=== PATIENT | male | born 1950 | race Caucasian/White ===

== ENCOUNTER 2022-09-16 01:18 | Observation (INO) | payer OTHER ==
[2022-09-16] MEDS ORDERED: LORAZEPAM 1 MG TABLET ONE (01:57)
[2022-09-16 02:02] LABS: Protime INR 0.99
[2022-09-16 02:04] LABS: Absolute Lymphocytes (CBC) 3.2 K/uL (0.7-4.9); Hematocrit 44.3 % (39.6-49.0); Lymphocytes % 32.9 % (15.3-44.8); MPV 8.6 fL (7.6-11.3); RBC Red Blood Cell Count 4.76 M/uL (4.33-5.43)
[2022-09-16 02:17] LABS: Bilirubin Direct 0.2 mg/dL (0-0.2); Bilirubin Indirect, Calculated 0.5 mg/dL (0.2-0.8); Bilirubin Total 0.7 mg/dL (0.2-1.0); Potassium 3.3 mEq/L (3.5-5.1); Protein, Total 7.6 g/dL (6.4-8.2); Troponin High Sensitivity 7.9 pg/mL (<58.9)
--- NOTE | 2022-09-16 04:54 | EKG ---
Test Date: 2022-09-16 Test Time: 01:22:01 Production Material Coordinator: ROMA MEASUREMENT RESULTS: Intervals: Rate: 117 ME: 164 QRSD: 82 QT: 312 QTc: 435 [place]: P: 71 ME: 164 QRS: 79 T: 54 INTERPRETIVE STATEMENTS: Sinus tachycardia Otherwise normal ECG No previous ECG available for comparison Electronically Signed On 09-16-22 04:53:30 CDT by Yonatan Park
[2022-09-16] MEDS ORDERED: ALBUTEROL 2.5 MG/3 ML NEB SOL NEB PRN ×2 (05:50→14:00)
[2022-09-16] MEDS ORDERED: ACETAMINOPHEN 500 MG TAB PO PRN (05:50)
[2022-09-16] MEDS ORDERED: ALPRAZOLAM 0.5 MG TABLET PO PRN (05:50)
[2022-09-16] MEDS ORDERED: ONDANSETRON 4 MG/2 ML VIAL IV PRN (05:50)
--- NOTE | 2022-09-16 06:08 | ER ---
Nurse's Notes [facility] Name: Gian Lombardi Age: 71 yrs Sex: Male : 1950 Arrival Date: 09/16/2022 Time: 01:18 Bed 5 Private MD: Diagnosis: Angina pectoris, unspecified Presentation: 09/16 01:20 Chief complaint: EMS states: pt is from [facility]. He stated that he has kd3 been having chest pain that started yesterday. It feels like a squeezing sensation that radiates to the left shoulder. PT denies heart issues other than HTN. Coronavirus screen: Vaccine status: Patient reports receiving the 2nd dose of the covid vaccine. Ebola Screen: No symptoms or risks identified at this time. Initial Sepsis Screen: Does the patient meet any 2 criteria? No. Patient's initial sepsis screen is negative. Does the patient have a suspected source of infection? No. Patient's initial sepsis screen is negative. Risk Assessment: Do you want to hurt yourself or someone else? Patient reports no desire to harm self or others. Onset of symptoms was September 16, 2022. 01:20 Method Of Arrival: EMS: [facility] kd3 01:20 Acuity: AVIS 3 kd3 Triage Assessment: 01:23 General: Appears in no apparent distress. Behavior is calm, cooperative. Pain: kd3 Complains of pain in mid-sternal area Pain radiates to posterior aspect of left shoulder. Cardiovascular: Patient's skin is warm and dry. Historical: - Allergies: 01:23 No Known Allergies; kd3 - Immunization history:: Adult Immunizations up to date. - Social history:: Smoking status: Patient denies any tobacco usage or history of. - Family history:: not pertinent. Screenin:50 [facility] ED Fall Risk Assessment (Adult) History of falling in the last 3 months, kd3 including since admission No falls in past 3 months (0 pts) Confusion or Disorientation No (0 pts) Intoxicated or Sedated No (0 pts) Impaired Gait Yes (1 pt) Mobility Assist Device Used No (0 pt) Altered Elimination No (0 pt) Score/Fall Risk Level 0 - 2 = Low Risk Maintained a safe environment. Abuse screen: Denies threats or abuse. Denies injuries from another. Nutritional screening: No deficits noted. Tuberculosis screening: No symptoms or risk factors identified. Assessment: 03:06 Reassessment: pt is resting in bed with eyes closed, respirations are even and jb4 unlabored with no s/s of pain or distress noted. 04:32 Reassessment: Patient appears in no apparent distress at this time. No changes from jb4 previously documented assessment. Patient and/or family updated on plan of care and expected duration. Pain level reassessed. 06:01 General: Appears in no apparent distress. Behavior is calm, cooperative. Pain: Denies kd3 pain. Pain: Pain began 1 day ago. Neuro: Level of Consciousness is awake, alert, obeys commands, Oriented to person, place, time. Neuro: Oriented to situation. Respiratory: Airway is patent Trachea midline Respiratory effort is even, unlabored, Respiratory pattern is regular, symmetrical. 06:33 Reassessment: Patient appears in no apparent distress at this time. No changes from jb4 previously documented assessment. Patient and/or family updated on plan of care and expected duration. Pain level reassessed. 07:00 Reassessment: REC REPORT FROM LOIS ROGERS. bp 07:20 Reassessment: ATTEMPTED TO CALL REPORT, FLOOR STAFF IN STAFF MEETING. bp 07:38 Reassessment: ATTEMPTED TO CALL REPORT, FLOOR STAFF IN STAFF MEETING. bp 08:05 Reassessment: ATTEMPTED TO CALL REPORT, FLOOR STAFF IN REPORT. bp 08:30 Reassessment: ATTEMPTED TO CALL REPORT, ROOM NOT ASSIGNED TO NURSE. bp 09:00 Reassessment: REPORT TO ADITHYA ROGERS. bp Vital Signs: 01:49 BP 135 / 100; Pulse 99; Resp 20; Pulse Ox 98% on R/A; kd3 01:50 Temp 98.8(O); kd3 03:00 BP 129 / 94; Pulse 100; Resp 16; Pulse Ox 97% on R/A; jb4 04:00 BP 99 / 74; Pulse 80; Resp 14; Pulse Ox 93% on R/A; jb4 04:41 BP 99 / 69; Pulse 81; Resp 19; Pulse Ox 96% ; jb4 06:01 BP 93 / 65; Pulse 77; Resp 18; Pulse Ox 94% on R/A; kd3 ED Course: 01:19 Patient arrived in ED. ja2 01:20 Lois Wood, RN is Primary Nurse. kd3 01:21 Vignesh Rush MD is Attending Physician. sp4 01:23 Triage completed. kd3 01:23 Arm band placed on. EKG completed in triage. Results shown to MD. kd3 01:37 XRAY Chest (1 view) In Process Unspecified. EDMS 01:51 Patient has correct armband on for positive identification. Bed in low position. Client kd3 placed on continuous cardiac and pulse oximetry monitoring. NIBP monitoring applied. air sampling and monitoring on. 01:51 No provider procedures requiring assistance completed. Maintain EMS IV. Dressing kd3 intact. Good blood return noted. Site clean \T\ dry. Gauge \T\ site: 18 gauge in the left A/C. Patient maintains SpO2 saturation greater than 95% on room air. 04:57 Troponin High Sensitivity Sent. kd3 06:07 Alex Shea MD is Hospitalizing Provider. sp4 09:03 Patient admitted, IV remains in place. kc6 Administered Medications: 01:52 Drug: LORazepam PO 2 mg Route: PO; jb4 Medication: 01:51 VIS not applicable for this client. kd3 Outcome: 06:08 Decision to Hospitalize by Provider. sp4 09:02 Admitted to Med/surg accompanied by nurse, via wheelchair, room 230, with chart. kc6 09:02 Condition: stable 09:02 Instructed on the need for admit. 09:05 Patient left the ED. kc6 Signatures: Dispatcher [employer] EDMS Alo Lehman RN RN jb4 Haseeb Adamson, RN RN Sammie Jackson Kyli, RN RN kd3 Faith Carson RN RN kc6 Vignesh Rush MD MD sp4 Corrections: (The following items were deleted from the chart) 09:03 09:02 Admitted to Med/surg accompanied by nurse, via wheelchair, with chart, kc6 kc6
--- NOTE | 2022-09-16 06:09 | EDPHYS ---
Physician Documentation [facility] Name: Gian Lombardi Age: 71 yrs Sex: Male : 1950 Arrival Date: 09/16/2022 Time: 01:18 Bed 5 Private MD: ED Physician Vignesh Rush HPI: 09/16 01:21 This 71 yrs old Unknown Male presents to ER via Unassigned with complaints of Chest sp4 Pain. 06:01 The C6 11-year-old male with past medical history of pervasive developmental disorder, sp4 gait abnormality, history of multiple falls, protein calorie malnutrition, major depressive disorder, anxiety disorder, hypercholesterolemia, hyperlipidemia, hypertension and chronic pain syndrome presents from correction with EMS for reported chest pain for the past 24 hours. Patient's medications include lisinopril, Paxil, potassium, pravastatin, Tylenol, patient's primary MD is Dr. Shea. Patient himself reported a vague midsternal chest pain starting about 1 day ago.. Historical: - Allergies: 01:23 No Known Allergies; kd3 - Immunization history:: Adult Immunizations up to date. - Social history:: Smoking status: Patient denies any tobacco usage or history of. - Family history:: not pertinent. ROS: 06:01 Constitutional: Negative for fever, chills, and weight loss, Eyes: Negative for injury, sp4 pain, redness, and discharge, ENT: Negative for injury, pain, and discharge, Neck: Negative for injury, pain, and swelling, Cardiovascular: Negative for palpitations, and edema, positive for chest pain Respiratory: Negative for shortness of breath, cough, wheezing, and pleuritic chest pain, Abdomen/GI: Negative for abdominal pain, nausea, vomiting, diarrhea, and constipation, Back: Negative for injury and pain, : Negative for injury, bleeding, discharge, and swelling, MS/Extremity: Negative for injury and deformity, Skin: Negative for injury, rash, and discoloration, Neuro: Negative for headache, weakness, numbness, tingling, and seizure, Psych: Negative for depression, anxiety, Allergy/Immunology: Negative for hives, rash, and allergies Endocrine: Negative for neck swelling, polydipsia, polyuria, polyphagia, and weight changes Hematologic/Lymphatic: Negative for swollen nodes, abnormal bleeding, and unusual bruising Exam: 06:01 Constitutional: This is a well developed, well nourished patient who is awake, alert, sp4 and in no acute distress. Thin male appears older than stated age, tachycardic on presentation otherwise normal Head/Face: Normocephalic, atraumatic. Eyes: Pupils equal round and reactive to light, extra-ocular motions intact. Lids and lashes normal. Conjunctiva and sclera are not injected. Cornea within normal limits. Periorbital areas with no swelling, redness, or edema. ENT: Nares patent. No nasal discharge, no septal abnormalities noted. Tympanic membranes are normal and external auditory canals are clear. Oropharynx with no redness, swelling, or masses, exudates, or evidence of obstruction, uvula midline. Mucous membranes moist. Neck: Trachea midline, no thyromegaly or masses palpated, and no cervical lymphadenopathy. Supple, full range of motion without nuchal rigidity, or vertebral point tenderness. No Meningismus. Chest/axilla: Normal chest wall appearance and motion. Nontender with no deformity. No lesions are appreciated. Cardiovascular: Regular tachycardia with a normal S1 and S2. No gallops, murmurs, or rubs. Normal PMI, no JVD. No pulse deficits. Respiratory: Lungs have equal breath sounds bilaterally, clear to auscultation and percussion. No rales, rhonchi or wheezes noted. No increased work of breathing, no retractions or nasal flaring. Abdomen/GI: Soft, non-tender, with normal bowel sounds. No distension or tympany. No guarding or rebound. No evidence of tenderness throughout. Back: No spinal tenderness. No costovertebral tenderness. Male : Normal genitalia with no discharge or lesions. Skin: Warm, dry with normal turgor. Normal color with no rashes, no lesions, and no evidence of cellulitis. MS/ Extremity: Pulses equal, no cyanosis. Neurovascular intact. Full, normal range of motion. Neuro: Awake and alert, GCS 15, oriented to person, place, time, and situation. Cranial nerves II-XII grossly intact. Motor strength 5/5 in all extremities. Sensory grossly intact. Psych: Awake, alert, with orientation to person, place and time. Behavior, mood, and affect are within normal limits 06:01 ECG was reviewed by the Attending Physician. Normal sinus tachycardia at 0 122 EKG sp4 reveals sinus tachycardia at a rate of 117 otherwise normal EKG Vital Signs: 01:49 BP 135 / 100; Pulse 99; Resp 20; Pulse Ox 98% on R/A; kd3 01:50 Temp 98.8(O); kd3 03:00 BP 129 / 94; Pulse 100; Resp 16; Pulse Ox 97% on R/A; jb4 04:00 BP 99 / 74; Pulse 80; Resp 14; Pulse Ox 93% on R/A; jb4 04:41 BP 99 / 69; Pulse 81; Resp 19; Pulse Ox 96% ; jb4 06:01 BP 93 / 65; Pulse 77; Resp 18; Pulse Ox 94% on R/A; kd3 MDM: 01:21 Patient medically screened. sp4 06:01 Differential diagnosis: acute myocardial infarction, acute pericarditis, anxiety, sp4 coronary artery disease chest wall pain, congestive heart failure costochondritis. HEART Score: History: Moderately Suspicious (1), ECG: Non specific repolarization disturbance / LBTB / PM (1), Age: > or = 65 years (2), Risk Factors: 1 or 2 risk factors (1), Troponin: < or = 1 x Normal Limit (0), Total Score = 5. The patient was given aspirin in the Emergency Department. Data reviewed: vital signs, nurses notes, EMS record, old medical records, lab test result(s), EKG, radiologic studies, plain films. ED course: Aspirin was given by EMS prior to arrival. Patient was given Ativan for anxiety here in ER. Work-up unremarkable thus far, patient is stable for admission for rule out ACS. 09/16 01:21 Order name: Basic Metabolic Panel; Complete Time: 04:09/16 01:21 Order name: CBC with Diff; Complete Time: 04:09/16 01:21 Order name: LFT's; Complete Time: :09/16 01:21 Order name: NT PRO-BNP; Complete Time: 04:09/16 01:21 Order name: PT-INR; Complete Time: 04:09/16 01:21 Order name: Troponin HS; Complete Time: 04:09/16 04:23 Order name: Troponin High Sensitivity; Complete Time: 05: sp4 09/16 05:57 Order name: T4 Free EDHI 09/16 05:57 Order name: Urinalysis w/ reflexes [facility] 09/16 05:57 Order name: Basic Metabolic Panel [facility] 09/16 05:57 Order name: Basic Metabolic Panel [facility] 09/16 01:21 Order name: XRAY Chest (1 view) sp4 09/16 01:21 Order name: EKG; Complete Time: 01:22 sp4 09/16 05:57 Order name: Patient Safety Orders [facility] 09/16 05:57 Order name: Heart Healthy [facility] 09/16 05:57 Order name: EKG Electrocardiogram [facility] 09/16 05:57 Order name: EKG Electrocardiogram [facility] 09/16 05:57 Order name: EKG Electrocardiogram [facility] 09/16 06:48 Order name: Diet Mech. Soft (ground); Complete Time: 06:49 kd3 09/16 01:21 Order name: Cardiac monitoring; Complete Time: 01:24 sp4 09/16 01:21 Order name: EKG - Nurse/Tech; Complete Time: 01:24 sp4 09/16 01:21 Order name: IV Saline Lock; Complete Time: 01:43 sp4 09/16 01:21 Order name: Labs collected and sent; Complete Time: 01:43 sp4 09/16 01:21 Order name: O2 Per Protocol; Complete Time: 01:24 sp4 09/16 01:21 Order name: O2 Sat Monitoring; Complete Time: 01:24 4 EC:01 Rate is 117 beats/min. Rhythm is regular, Sinus tachycardia. QRS [place] is Normal. AR sp4 interval is normal. QRS interval is normal. QT interval is normal. T waves are Normal. No ST changes noted. Clinical impression: Sinus tachycardia. Interpreted by me. Administered Medications: 01:52 Drug: LORazepam PO 2 mg Route: PO; jb4 Disposition Summary: 09/16/22 06:08 Hospitalization Ordered Hospitalization Status: Observation sp4 Provider: Alex Shea spLeonard Condition: Stable sp4 Problem: new sp4 Symptoms: have improved sp4 Bed/Room Type: Standard sp4 Location: Telemetry/MedSurg (observation)(09/16/22 07:05) sadia Room Assignment: 230(09/16/22 07:05) sadia Diagnosis - Angina pectoris, unspecified sp4 Forms: - Medication Reconciliation Form sp4 - SBAR form sp4 Signatures: Dispatcher [employer] EDAnnamarie Patel RN RN Alo Lehman RN RN jb4 Sixto Baldwin RN RN ja1 Lois Wood RN RN kd3 Vignesh Rush MD MD sp4 Corrections: (The following items were deleted from the chart) 06:10 06:08 Telemetry/MedSurg (observation) sp4 06:10 06:08 sp4 07:05 06:10 [facility] ER HOLD ja1 07:05 06:10 ERHOLD- ja1
[2022-09-16] MEDS: ASPIRIN EC 81 MG TAB PO SCH (09:51)
[2022-09-16] MEDS: METOPROLOL XL 25 MG TAB PO SCH (09:51)
[2022-09-16] MEDS: ENOXAPARIN 40 MG/0.4 ML SQ SCH (09:52)
[2022-09-16 11:18] VITALS: BMI 25.7
[2022-09-16 11:42] LABS: Thyroid Stimulating Hormone 2.79 uIU/mL (0.358-3.740)
--- NOTE | 2022-09-16 20:46 | HP ---
Date of Admission: 09/16/2022 Chief Complaint: Chest pain. History Of Present Illness: This is a 71-year-old pleasant male patient living at [facility] who was sent to emergency room last night with complaints of chest pain and the patient was noted to be diaphoretic at [facility]. After he was evaluated in the ER, he was admitted to the hospital. I saw him in the emergency room this morning. He was sleeping, easily arousable, denied any complaints of any pain at that time and he was asymptomatic. Allergies: NO KNOWN ALLERGIES. Medications: List reviewed. Review of Systems: Cardiovascular: As mentioned above. All other systems reviewed and negative. Social History: Negative for smoking and alcohol use. Past Surgical History: Negative. Family History: Sister with hypertension and hyperlipidemia. Past Medical History: Significant for hypertension, hyperlipidemia, anxiety, depression, chronic kidney disease, and unspecified intellectual disability. Physical Examination: Vital Signs: Height 5 feet 5 inches, weight 155 pounds, temperature 97.8, pulse 98, respiratory rate 16, blood pressure 132/91, oxygen saturation 98%. General: Awake, alert, oriented, not in distress. HEENT: Head atraumatic, normocephalic. Conjunctivae nonerythematous. Sclerae white. Mouth, no thrush or edema noted. Ears/Nose, no mass, lesion, discharge noted. Neck: Supple. No JVD, lymph nodes, bruit, thyromegaly noted. Lungs: Bilateral good equal air entry. Clear to auscultation. No rhonchi. No rales. Heart: Normal heart sounds, no murmur or gallop. Abdomen: Soft, bowel sounds normal. No guarding, rigidity, tenderness, mass, hepatosplenomegaly, distention, or bruit noted. Extremities: No leg edema. No calf tenderness. Skin: No rash, ulcer, cellulitis. Lymphatics: No lymph node enlargement in neck, supraclavicular, infraclavicular region. Neuro: No focal neurological deficit. Chest: Unremarkable. External Genitalia: Deferred. Rectal: Deferred. Laboratory Data: Chest x-ray: No acute cardiopulmonary changes. EKG: No acute ST-T changes. White count 9.6, hemoglobin 15, and platelets 268. Sodium 138, potassium 3.3, chloride 104, bicarb 26, BUN 19, creatinine 1.36, and glucose 143. Liver function tests unremarkable. First troponin 7.9, second troponin 22.4. Impression: 1. Angina. 2. Rule out myocardial infarction. 3. Hypokalemia. 4. Chronic kidney disease, stage 3a. 5. Hypertension. 6. Hyperlipidemia. 7. Anxiety. 8. Depression. 9. Unspecified intellectual disability. Plan: We will admit the patient to hospital for further evaluation and management of this problem. The patient is appropriate for observation. We will go ahead and consult Cardiology. Echo with Doppler was ordered and we will get third set of cardiac enzyme today. Start the patient on aspirin and metoprolol per order. The patient's sister was notified through office regarding the patient's condition and plan of treatment. I will see him tomorrow for followup with possibility of discharge tomorrow. ASHLEIGH/NOEL Voice ID: [id number] MTDD
[2022-09-17 04:15] LABS: Potassium 4.2 mEq/L (3.5-5.1)
--- NOTE | 2022-09-17 06:38 | ECHO ---
HEIGHT: 5 ft 5 in WEIGHT: 155 lb 0 oz DATE OF STUDY: 09/16/[address]: Alex Shea MD 2-DIMENSIONAL: YES M.MODE: YES DOPPLER: YES COLOR FLOW: YES TDS: PORTABLE: DEFINITY: BUBBLE STUDY: DIAGNOSIS: CHEST PAIN CARDIAC HISTORY: CATHERIZATION: SURGERY: PROSTHETIC VALVE: PACEMAKER: MEASUREMENTS (cm) DIASTOLIC (NORMALS) SYSTOLIC (NORMALS) IVSd 0.8 (0.6-1.2) LA Diam 2.9 (1.9-4.0) LVEF 65% LVIDd 4.2 (3.5-5.7) LVIDs 2.7 (2.0-3.5) %FS 36% LVPWd 0.9 (0.6-1.2) Ao Diam 2.8 (2.0-3.7) 2 DIMENSIONAL ASSESSMENT: RIGHT ATRIUM: NORMAL LEFT ATRIUM: NORMAL RIGHT VENTRICLE: NORMAL LEFT VENTRICLE: NORMAL TRICUSPID VALVE: TRACE TRICUSPID REGURGITATION MITRAL VALVE: NORMAL PULMONIC VALVE: NORMAL AORTIC VALVE: NORMAL PERICARDIAL EFFUSION: NONE AORTIC ROOT: NORMAL LEFT VENTRICULAR WALL MOTION: NORMAL DOPPLER/COLOR FLOW: TRACE TRICUSPID REGURGITATION COMMENTS: 1. NORMAL LEFT VENTRICULAR EJECTION FRACTION 60-65% 2. NORMAL WALL MOTION 3. NORMAL DIASTOLIC FUNCTION 4. TRACE TRICUSPID REGURGITATION TECHNOLOGIST: GERONIMO RAWLS
[2022-09-17 08:35] VITALS: BP 110/61; TEMP 98.4
[2022-09-17] MEDS: ENOXAPARIN 40 MG/0.4 ML SQ SCH (08:53)
[2022-09-17] MEDS: ASPIRIN EC 81 MG TAB PO SCH (09:17)
[2022-09-17] MEDS: METOPROLOL XL 25 MG TAB PO SCH (09:17)
[2022-09-17 09:30] VITALS: O2SAT 94
[2022-09-17] MEDS ORDERED: ATORVASTATIN 80 MG TAB PO SCH (21:00)
--- NOTE | 2022-09-17 21:18 | RAD REPORT ---
EXAM DESCRIPTION: RAD - Chest Single View - 09/16/2022 1:36 am CLINICAL HISTORY: 71 years, Male, CHEST PAIN COMPARISON: None. FINDINGS: Single view of the chest was obtained portable. No prior films are available for compariso n. The cardiomediastinal silhouette demonstrate to be unremarkable. The heart is not enlarged. The th oracic aorta is mildly tortuous. The pulmonary vasculature is normal distribution. Costophrenic angle s are sharp. No areas of consolidation or masses are seen. The rest of the soft tissue and bony s tructures demonstrate to be unremarkable. IMPRESSION: No acute cardiopulmonary disease seen. Electronically signed by: Zachery Can MD 09/16/2022 1:50 AM CDT Due to temporary technical issues with the PACS/Fluency reporting system, reports are being signed by the in house radiologists without review as a courtesy to insure prompt reporting. The interpreting radiologist is fully responsible for the content of the report.
--- NOTE | 2022-09-18 01:32 | DS ---
Date of Discharge: 09/17/2022 Disposition: Discharged to go to alf. Physical Examination: HEENT: Unremarkable. Lungs: Clear to auscultation. Heart: Sounds normal. Abdomen: Soft. Bowel sounds normal. No guarding, rigidity, tenderness, or distention. Extremities: No leg edema. Laboratory Data: Sodium 138, potassium 3.3, chloride 104, bicarb 26, BUN 19, creatinine 1.36, glucose 143. Liver function tests unremarkable. First troponin 7.9, second troponin 22.4. WBC 9.6, hemoglobin 15, and platelets 268. Discharge Instructions/medication: 1. Continue all prior home medications except following changes: a. Stop pravastatin. b. Stop lisinopril/HCTZ. c. Start metoprolol succinate 25 mg 1 tablet by mouth daily. d. Start atorvastatin 40 mg daily at bedtime. e. Start aspirin 81 mg daily. 2. Labs: CMP in 1 month and CMP with lipid profile in 3 months. Hospital Course: This 71-year-old pleasant male patient living at [facility] was sent to emergency room with chest pain and diaphoresis. Please see dictated H and P for more information. After the patient was evaluated in the emergency room, he was admitted to the hospital. His VA was ruled out by getting serial cardiac enzymes. The patient has remained asymptomatic. Cardiology consultation was requested from Dr. Park. Details were discussed with him. The patient's echocardiogram came back normal. It shows normal ejection fraction and no evidence of any wall motion abnormality. No further intervention was recommended by fur farmer. The patient was started on metoprolol and aspirin yesterday upon admission and will continue that upon discharge. I did call the patient's sister and discussed details with her today. Final Diagnoses: 1. Angina. 2. Hypokalemia. 3. Chronic kidney disease, stage 3a. 4. Hypertension. 5. Hyperlipidemia. 6. Anxiety. 7. Depression. 8. Unspecified intellectual disability. ASHLEIGH/MODL Voice ID: [id number] Report ID: [id number]
--- NOTE | 2022-09-18 16:17 | CON ---
Date of Consultation: 09/17/2022 Reason For Consultation: Atypical chest pain, dizziness, diarrhea. History Of Present Illness: Mr. Lombardi is a 71, just recently moved to this area. He is [place]. Has hypertension, dyslipidemia, and some developmental issues since he was a child and h ad multiple symptoms, but mostly left lateral sharp chest pain. Has had some diarrhea as well and so me dizziness. By the time, I saw him, he was pain free. His potassium was 3.3, his creatinine 1.36. EKG was normal. Chest x-ray was normal. Troponin was normal. Past Medical History: As stated above. Allergies: NONE. Medications: Include Pravachol, lisinopril, hydrochlorothiazide, and Paxil. Review of Systems: Negative. Social History: As stated earlier. Family History: Noncontributory. Physical Examination: Vital Signs: Stable. He was afebrile. HEENT: Negative. Neck: Supple with no bruit. Chest: Clear. Cardiac: Normal. Abdomen: Benign. Extremities: Revealed no clubbing, cyanosis, or edema. Diagnostic Data: As stated earlier. Echocardiogram is normal. Impression And Plan: 1.Atypical chest pain. 2.Hypertension. 3.Dyslipidemia. 4.Developmental issues. The patient's echocardiogram was normal and EKG was normal. His chest x-ray was normal. The potassi um may be supplemented. It may be low because it is from diarrhea. His creatinine is 1.36 and we ne ed to watch for that. Considering he is taking lisinopril and hydrochlorothiazide, we will keep an e ye on his creatinine down the road. Case was discussed with Dr. Shea. He can go home. I think we w ill continue medical therapy for now. NB/MODL Voice ID: [id number] Report ID: [id number]
== END 2022-09-17 11:20 ==
LOC: ER 01:18 → SUPCPDRO 01:18 → ERHOLD 05:49 → 2ND 08:00
PROVIDERS: ADMIT Internal Medicine; ATTEND Internal Medicine
DX: I20.0 Unstable angina (principal); I12.9 Hypertensive chronic kidney disease with stage 1 through stage 4 chronic kidney disease, or unspecified chronic kidney disease; N18.31 Chronic kidney disease, stage 3a; E87.6 Hypokalemia; F79 Unspecified intellectual disabilities; E78.5 Hyperlipidemia, unspecified; F41.9 Anxiety disorder, unspecified; F32.A Depression, unspecified; Z79.899 Other long term (current) drug therapy; Z82.49 Family history of ischemic heart disease and other diseases of the circulatory system
CPT/HCPCS: 93005; 93306; 85025; 80048 ×2; 36415 ×2; 85610; 80061; 80076; 84443; 84484 ×3; 84439; 83880; 71045; 99285; J1650; G0378 ×4

== ENCOUNTER 2022-09-21 23:57 | Emergency (ER) | payer OTHER ==
[2022-09-22 00:44] LABS: Protime INR 0.99
[2022-09-22 01:02] LABS: Absolute Lymphocytes (CBC) 2.1 K/uL (0.7-4.9); Hematocrit 44.2 % (39.6-49.0); Lymphocytes % 20.6 % (15.3-44.8); MCV 93.1 fL (80-100); MPV 8.7 fL (7.6-11.3); RBC Red Blood Cell Count 4.75 M/uL (4.33-5.43)
[2022-09-22 01:05] LABS: Albumin 3.9 g/dL (3.4-5.0); Bilirubin Direct 0.1 mg/dL (0-0.2); Bilirubin Indirect, Calculated 0.2 mg/dL (0.2-0.8); Bilirubin Total 0.3 mg/dL (0.2-1.0); Magnesium 2.2 mg/dL (1.6-2.4); Potassium 3.9 mEq/L (3.5-5.1); Protein, Total 7.7 g/dL (6.4-8.2); Troponin High Sensitivity 6.8 pg/mL (<58.9)
[2022-09-22] MEDS ORDERED: MORPHINE 4 MG/ML SYR ONE (01:20)
--- NOTE | 2022-09-22 04:14 | ER ---
Nurse's Notes [facility] Name: Gian Lombardi Age: 71 yrs Sex: Male : 1950 Arrival Date: 09/21/2022 Time: 23:57 Bed 4 Private MD: Diagnosis: Acute chest wall pain, Presentation: 09/22 00:15 Chief complaint: Patient states: upper abdominal pain of 5,onset [employer] HEL[employer]. Patient from [address] [facility] stated patient's FSBGL 104. 00:15 Coronavirus screen: Vaccine status: Patient reports being unvaccinated. Client denies [facility] travel out of the [place] in the last 14 days. At this time, the client does not indicate any symptoms associated with coronavirus-19. Ebola Screen: Patient negative for fever greater than or equal to 101.5 degrees Fahrenheit, and additional compatible Ebola Virus Disease symptoms. Initial Sepsis Screen: Does the patient meet any 2 criteria? No. Patient's initial sepsis screen is negative. Does the patient have a suspected source of infection? No. Patient's initial sepsis screen is negative. Risk Assessment: Do you want to hurt yourself or someone else? Patient reports no desire to harm self or others. 00:15 Method Of Arrival: EMS: [facility] pf1 00:15 Acuity: AVIS 3 pf1 Historical: - Allergies: 00:28 No Known Allergies; pf1 - PMHx: 00:28 Angina pectoris; pf1 - Social history:: Patient/guardian denies using alcohol, street drugs, IV drugs, caffeine, over the counter diet medications, tobacco products. - Family history:: not pertinent. Screenin:15 [facility] ED Fall Risk Assessment (Adult) History of falling in the last 3 months, pf1 including since admission No falls in past 3 months (0 pts) Confusion or Disorientation Yes (5 pts) Intoxicated or Sedated No (0 pts) Impaired Gait Yes (1 pt) Mobility Assist Device Used No (0 pt) Altered Elimination No (0 pt) Score/Fall Risk Level 3 or more points = High Risk Oriented to surroundings, Maintained a safe environment, Educated pt \T\ family on fall prevention, incl call for assistance when getting out of bed, Assessed \T\ reinforced patient's understanding of fall precautions, Provided non-skid footwear, Hourly rounding (assess needs \T\ fall precautionary measures) done, Used ambulatory aids as needed (educated on \T\ assisted with), Used gait belt as appropriate Implemented a Fall Risk Plan of Care, Remained w/in arm's length of patient and in sight while toileting, Offered frequent toileting (1:1 observation), Remained with patient while ambulating. 04:57 Abuse screen: Denies threats or abuse. Denies injuries from another. Nutritional ll3 screening: No deficits noted. Tuberculosis screening: No symptoms or risk factors identified. Assessment: 00:20 General: Appears in no apparent distress. comfortable, well groomed, Behavior is pf1 appropriate for age, quiet. 00:20 Pain: Complains of pain in bilateral lower chestwall pain Pain currently is 5 out of 10 pf1 on a pain scale. Neuro: Level of Consciousness is awake, alert, obeys commands, Oriented to person, Appropriate for age. Cardiovascular: No deficits noted. Capillary refill < 3 seconds Patient's skin is warm and dry. Respiratory: No deficits noted. Airway is patent Respiratory effort is even, unlabored, Respiratory pattern is regular, symmetrical, Breath sounds are clear bilaterally. GI: Abdomen is flat, non-distended, Bowel sounds present X 4 quads. : No deficits noted. No signs and/or symptoms were reported regarding the genitourinary system. EENT: No deficits noted. No signs and/or symptoms were reported regarding the EENT system. Derm: No deficits noted. No signs and/or symptoms reported regarding the dermatologic system. Musculoskeletal: No deficits noted. Circulation, motion, and sensation intact. Capillary refill < 3 seconds, Range of motion:. 01:30 Reassessment: Patient appears in no apparent distress at this time. No changes from pf1 previously documented assessment. Patient is alert, oriented x 3, equal unlabored respirations, skin warm/dry/pink. Patient states symptoms have improved. 02:30 Reassessment: Patient appears in no apparent distress at this time. No changes from pf1 previously documented assessment. Patient is alert, oriented x 3, equal unlabored respirations, skin warm/dry/pink. Patient states feeling better. Patient states symptoms have improved. 03:30 Reassessment: Patient appears in no apparent distress at this time. No changes from pf1 previously documented assessment. Patient is alert, oriented x 3, equal unlabored respirations, skin warm/dry/pink. Patient states feeling better. Patient states symptoms have improved. 04:25 Reassessment: Patient appears in no apparent distress at this time. No changes from pf1 previously documented assessment. Patient is alert, oriented x 3, equal unlabored respirations, skin warm/dry/pink. Patient states feeling better. Patient states symptoms have improved. 04:34 Reassessment: GENIA Ramsay from [facility] ETA 30 minutes.pf1 Vital Signs: 00:15 BP 161 / 106; Pulse 86; Resp 18; Temp 98.4; Pulse Ox 98% on R/A; Weight 73.48 kg; pf1 Height 5 ft. 10 in. ; Pain 5/10; 01:21 BP 130 / 88; Pulse 86; Pulse Ox 94% on R/A; ll3 02:16 BP 115 / 81; Pulse 82; Resp 20; Pulse Ox 94% on R/A; ll3 03:37 BP 125 / 86; Pulse 87; Resp 20; Pulse Ox 96% on R/A; ll3 04:26 BP 119 / 72; Pulse 72; Resp 16; Pulse Ox 99% on R/A; Pain 0/10; pf1 00:15 Body Mass Index 23.24 (73.48 kg, 177.8 cm) pf1 00:15 Pain Scale: Adult pf1 04:26 Pain Scale: Adult pf1 ED Course: 00:00 Patient arrived in ED. sb4 00:04 Anders Friend PA is PHCP. cp 00:04 Vignesh Rush MD is Attending Physician. cp 00:20 Patient has correct armband on for positive identification. Bed in low position. Call pf1 light in reach. Side rails up X2. 00:20 Arm band placed on Patient placed in an exam room, on a stretcher, on pulse oximetry. ll3 00:28 Triage completed. pf1 00:29 XRAY Chest (1 view) In Process Unspecified. EDMS 00:34 Inserted saline lock: 20 gauge in right antecubital area, using aseptic technique. ah1 Blood collected. 00:34 Basic Metabolic Panel Sent. ah1 00:34 CBC with Diff Sent. ah1 00:34 LFT's Sent. ah1 00:34 Magnesium Sent. ah1 00:34 NT PRO-BNP Sent. ah1 00:34 PT-INR Sent. ah1 00:34 Troponin HS Sent. ah1 00:34 Lipase Sent. ah1 02:38 CT Chest For PE Angio In Process Unspecified. EDMS 04:12 Alex Shea MD is Referral Physician. sp4 04:57 No provider procedures requiring assistance completed. IV discontinued, intact, ll3 bleeding controlled, No redness/swelling at site. Pressure dressing applied. Administered Medications: 01:19 Drug: morphine IVP or IV 4 mg Route: IVP; Infused Over: 4 mins; Site: right antecubital;ll3 02:15 Follow up: Response: No adverse reaction; Marked relief of symptoms; Pain is decreased; pf1 RASS: Alert and Calm (0) Medication: 04:58 VIS not applicable for this client. ll3 Outcome: 04:14 Discharge ordered by . sp4 04:57 Discharged to home via ambulance. ll3 04:57 Condition: stable 04:57 Discharge instructions given to patient, EMS, Instructed on discharge instructions, follow up and referral plans. Demonstrated understanding of instructions, follow-up care. 04:58 Patient left the ED. ll3 Signatures: Dispatcher [employer] EDAZ Anders Friend PA PA cp Loubet, Lynsea, RN RN ll3 Elsi Temple PA-C PA-C sb4 Finley, Pamala, RN RN pf1 Vignesh Rush MD MD sp4 Connie Coates [facility] Corrections: (The following items were deleted from the chart) 00:28 00:24 Chief complaint: Patient states: upper abdominal pain of 5,onset [employer]. Patient pf1 from [facility]. [facility] stated patient's FSBGL 104. pf1 03:59 00:20 Pain: Complains of pain in abdomen Pain currently is 5 out of 10 on a pain scale. pf1 pf1 03:59 00:20 GI: Abdomen is flat, non-distended, Bowel sounds present X 4 quads. Reports upper pf1 abdominal pain, pf1
--- NOTE | 2022-09-22 04:14 | EDPHYS ---
Physician Documentation [facility] Name: Gian Lombardi Age: 71 yrs Sex: Male : 1950 Arrival Date: 09/21/2022 Time: 23:57 Bed 4 Private MD: ED Physician Vignesh Rush HPI: 09/22 00:20 This 71 yrs old Male presents to ER via EMS with complaints of Chest Pain. cp 00:20 The patient or guardian reports chest pain that is located primarily in the bilateral cp lower chest. Onset: today. 00:20 The pain does not radiate. The chest pain is described as waxing and waning. Duration: cp The patient or guardian reports multiple episodes, that are intermittent. Modifying factors: the symptoms are aggravated by deep breath, movement, palpation of area. 03:40 Mr. Lombardi is 71-year-old male presents with bilateral pain in the ribs so described by sp4 the patient. Patient otherwise has no complaints. Patient care was assumed from nighttime physician dyer assistant. . Historical: - Allergies: 00:28 No Known Allergies; pf1 - PMHx: 00:28 Angina pectoris; pf1 - Social history:: Patient/guardian denies using alcohol, street drugs, IV drugs, caffeine, over the counter diet medications, tobacco products. - Family history:: not pertinent. ROS: 00:25 Constitutional: Negative for body aches, chills, fever, poor PO intake. cp 00:25 Cardiovascular: Positive for chest pain, of the bilateral lower chest area, Negative cp for edema, palpitations. 00:25 Eyes: Negative for injury, pain, redness, and discharge. cp 00:25 ENT: Negative for drainage from ear(s), ear pain, sore throat, difficulty swallowing, difficulty handling secretions. 00:25 Respiratory: Negative for cough, wheezing. 00:25 Neck: Negative for pain with movement, pain at rest, stiffness. cp 00:25 Abdomen/GI: Negative for vomiting, diarrhea, constipation. 00:25 : Negative for urinary symptoms, hematuria. 00:25 Neuro: Negative for altered mental status, dizziness, headache, weakness. 00:25 All other systems are negative. Exam: 00:30 Constitutional: The patient appears in no acute distress, alert, awake, cp non-diaphoretic, non-toxic, well developed, well nourished. 00:30 Head/Face: Normocephalic, atraumatic. cp 00:30 Eyes: Periorbital structures: appear normal, Conjunctiva: normal, no exudate, no injection, Sclera: no appreciated abnormality, Lids and lashes: appear normal, bilaterally. 00:30 ENT: External ear(s): are unremarkable, Nose: is normal, Mouth: Lips: moist, Oral mucosa: moist, Posterior pharynx: is normal, airway is patent, no erythema, no exudate. 00:30 Neck: ROM/movement: is normal, is supple, without pain, no range of motions limitations, no nuchal rigidity. 00:30 Chest/axilla: Inspection: normal, Palpation: crepitus, is not appreciated, tenderness, that is moderate, of the bilateral lower chest wall. 00:30 Cardiovascular: Rate: normal, Rhythm: regular, Edema: is not appreciated, JVD: is not appreciated. 00:30 Respiratory: the patient does not display signs of respiratory distress, Respirations: normal, no use of accessory muscles, no retractions, labored breathing, is not present, Breath sounds: are clear throughout, no decreased breath sounds, no stridor, no wheezing. 00:30 Abdomen/GI: Inspection: abdomen appears normal, Bowel sounds: active, all quadrants, Palpation: abdomen is soft and non-tender, in all quadrants. 00:30 Back: CVA tenderness, is absent. 00:30 Skin: cellulitis, is not appreciated, no rash present. 00:30 Neuro: Orientation: to person, place \T\ time. Mentation: is normal, Motor: moves all fours, strength is normal, Sensation: is normal. 00:41 ECG was reviewed by the Attending Physician. cp Vital Signs: 00:15 BP 161 / 106; Pulse 86; Resp 18; Temp 98.4; Pulse Ox 98% on R/A; Weight 73.48 kg; pf1 Height 5 ft. 10 in. ; Pain 5/10; 01:21 BP 130 / 88; Pulse 86; Pulse Ox 94% on R/A; ll3 02:16 BP 115 / 81; Pulse 82; Resp 20; Pulse Ox 94% on R/A; ll3 03:37 BP 125 / 86; Pulse 87; Resp 20; Pulse Ox 96% on R/A; ll3 04:26 BP 119 / 72; Pulse 72; Resp 16; Pulse Ox 99% on R/A; Pain 0/10; pf1 00:15 Body Mass Index 23.24 (73.48 kg, 177.8 cm) pf1 00:15 Pain Scale: Adult pf1 04:26 Pain Scale: Adult pf1 MDM: 01:00 Differential diagnosis: abnormal EKG, acute myocardial infarction, cholecystitis, cp Cholelithiasis costochondritis, pancreatitis, pericarditis, pleurisy, pneumonia, pneumothorax, pulmonary embolus, thoracic aortic disection. 02:08 Patient medically screened. sp4 02:32 Data reviewed: vital signs, nurses notes, lab test result(s), EKG, radiologic studies, cp plain films. Awaiting: CT scan results. Transition of care: After a detail discussion of the patient's case, care is transferred to Vignesh Rush MD. 03:42 Differential Diagnosis flu, . sp4 04:10 ED course: EKG on Mr. Lombardi is normal today, recent admission on 09/17/2022 revealed sp4 normal echocardiogram normal rule out ACS work-up. Final Diagnoses: 1. Angina. 2. Hypokalemia. 3. Chronic kidney disease, stage 3a. 4. Hypertension. 5. Hyperlipidemia. 6. Anxiety. 7. Depression. 8. Unspecified intellectual disability.. ED course: CT angiography chest with IV contrast revealed motion degraded artifact limits evaluation of segmental vessels. No central pulmonary embolic disease. 2.8 mm right lower lobe nodule. Recommend noncontrast CT chest at 6 to [address] Patient is stable for discharge back to intermediate at this time secondary to negative work-up in the emergency department. . 09/22 00:14 Order name: Basic Metabolic Panel; Complete Time: : cp 09/22 00:14 Order name: CBC with Diff; Complete Time: : cp 09/22 00:14 Order name: LFT's; Complete Time: : cp 09/22 00:14 Order name: Magnesium; Complete Time: : cp 09/22 00:14 Order name: NT PRO-BNP; Complete Time: : cp 09/22 00:14 Order name: PT-INR; Complete Time: cp 09/22 00:14 Order name: Troponin HS; Complete Time: 01:27 cp 09/22 00:14 Order name: Lipase; Complete Time: 01:27 cp 09/22 00:54 Order name: D-Dimer; Complete Time: 01:27 EDMS 09/22 00:14 Order name: XRAY Chest (1 view) cp 09/22 01:28 Order name: CT Chest For PE Angio cp 09/22 00:14 Order name: EKG; Complete Time: 00:15 cp 09/22 00:14 Order name: Cardiac monitoring; Complete Time: 00:34 cp 09/22 00:14 Order name: EKG - Nurse/Tech; Complete Time: 00: cp 09/22 00:14 Order name: IV Saline Lock; Complete Time: 00: cp 09/22 00:14 Order name: Labs collected and sent; Complete Time: 00: cp 09/22 00:14 Order name: O2 Per Protocol; Complete Time: 00: cp 09/22 00:14 Order name: O2 Sat Monitoring; Complete Time: 00: cp EC:41 Rate is 88 beats/min. Rhythm is regular. LA interval is normal. QRS interval is normal. cp QT interval is normal. T waves are Inverted in lead aVR. Interpreted by me. Reviewed by me. Administered Medications: 01:19 Drug: morphine IVP or IV 4 mg Route: IVP; Infused Over: 4 mins; Site: right antecubital;ll3 02:15 Follow up: Response: No adverse reaction; Marked relief of symptoms; Pain is decreased; pf1 RASS: Alert and Calm (0) Disposition: 04:10 Co-signature as Attending Physician, Vignesh Rush MD I agree with the assessment sp4 and plan of care. I reviewed the patient's care provided by Advanced Practice Provider \T\ agree w/ the diagnosis \T\ care plan. I personally saw the pt \T\ performed a substantive portion of the visit, incldng all aspects of the (History/Exam/Medical Decision Making). Disposition Summary: 09/22/22 04:14 Discharge Ordered Location: Home sp4 Problem: new sp4 Symptoms: have improved sp4 Condition: Stable sp4 Diagnosis - Acute chest wall pain, sp4 Followup: sp4 - With: Alex Shea MD - When: 7 - 10 days - Reason: Recheck today's complaints Discharge Instructions: - Discharge Summary Sheet sp4 - Nonspecific Chest Pain, Adult, [id number] sp4 Signatures: Dispatcher [employer] EDMS Anders Friend PA PA cp Loubet, Lynsea RN RN ll3 Navya Dodson RN RN pf1 Vignesh Rush MD MD sp4 Corrections: (The following items were deleted from the chart) 00:54 00:41 D-DIMER+COAG.LAB.BRZ ordered. EDMS EDMS
[2022-09-22 05:22] VITALS: TEMP 98.4
[2022-09-22 05:26] VITALS: BP 119/72; O2SAT 99
--- NOTE | 2022-09-22 10:34 | RAD REPORT ---
EXAM DESCRIPTION: CT - Chest For Pe Angio - 09/22/2022 7:01 am CLINICAL HISTORY: CHEST PAIN TECHNIQUE: Axial computed tomographic angiography images of the chest with intravenous contrast. S agittal and coronal reformatted images were created and reviewed. This CT exam was performed using one or more of the following dose reduction techniques: automated exposure control, adjustment of t he mA and/or kV according to patient size, and/or use of iterative reconstruction technique. MIP reconstructed images were created and reviewed. COMPARISON: No relevant prior studies available. FINDINGS: Artifacts: Motion artifact degrades image quality and limits evaluation of segmental and subsegmental vessels. Pulmonary arteries: Unremarkable. No central pulmonary arterial filling defects. 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 No thoracic aortic aneurysm. Lungs: Bibasilar subsegmental atelectasis/pleural parenchymal scar. 8 mm right lower lobe nodule (series 401 image 51 and series 406 image 18). Pleural space: Unremarkable. No significant effusion. No pneumothorax. Heart: Unremarkable. No cardiomegaly. No significant pericardial effusion. No evidence of RV dysfunction. Bones/joints: No acute fracture. No dislocation. Soft tissues: Unremarkable. Lymph nodes: Unremarkable. No enlarged lymph nodes. Kidneys and ureters: The left kidney is absent. Stomach and bowel: Duodenal diverticula. IMPRESSION: 1. Motion artifact degrades image quality and limits evaluation of segmental and subse gmental vessels. No central pulmonary embolic disease. 2. 8 mm right lower lobe nodule. Recommend a non-contrast Chest CT at 6-12 months. If patient i s high risk for malignancy, recommend an additional non-contrast Chest CT at 18-24 months; if patient is low risk for malignancy a non-contrast Chest CT at 18-24 months is optional. These guidelines d o not apply to immunocompromised patients and patients with cancer. Follow up in patients with signif icant comorbidities as clinically warranted. For lung cancer screening, adhere to Lung-RADS guideline s. Reference: Radiology. 2017; 284(1):228-43. 3. Other findings as above. Electronically signed by: Tawny Kim MD 09/22/2022 3:09 AM CDT Due to temporary technical issues with the PACS/Fluency reporting system, reports are being signed by the in house radiologists without review as a courtesy to insure prompt reporting. The interpreting radiologist is fully responsible for the content of the report.
--- NOTE | 2022-09-22 11:58 | RAD REPORT ---
EXAM DESCRIPTION: RAD - Chest Single View - 09/22/2022 12:28 am CLINICAL HISTORY: CHEST PAIN COMPARISON: 09/16/2022 FINDINGS: Single frontal radiograph view of the chest. Cardiomediastinal silhouette: Atherosclerotic calcification of thoracic aorta. Heart is not enlarged. Lungs: No consolidation, pneumothorax, or pleural effusion. Leads overlie the chest. Hyperexpansion. Bones: No acute osseous abnormality. Upper abdomen: No abnormality identified. IMPRESSION: 1. No acute pneumonic process identified. Possible obstructive lung disease. Electronically signed by: Morro Vasquez 09/22/2022 1:43 AM CDT Due to temporary technical issues with the PACS/Fluency reporting system, reports are being signed by the in house radiologists without review as a courtesy to insure prompt reporting. The interpreting radiologist is fully responsible for the content of the report.
--- NOTE | 2022-09-23 07:09 | EKG ---
Test Date: 2022-09-22 Test Time: 00:34:18 Copy Messenger: EZEQUIEL MEASUREMENT RESULTS: Intervals: Rate: 88 CO: 144 QRSD: 74 QT: 342 QTc: 413 [place]: P: 88 CO: 144 QRS: 85 T: 81 INTERPRETIVE STATEMENTS: Normal sinus rhythm Normal ECG Compared to ECG 09/16/2022 01:22:01 Sinus tachycardia no longer present Electronically Signed On 09-23-22 07:06:51 CDT by Yonatan Park
== END 2022-09-22 04:58 | disposition home or self-care (01) ==
LOC: ER 23:57
DX: R07.89 Other chest pain (principal)
CPT/HCPCS: 93005; 85025; 80048; 36415; 83735; 85610; 85379; 80076; 84484; 83690; 83880; 71275; 71045; 96374; 99284; Q9967

== ENCOUNTER 2024-03-26 20:54 | Emergency (ER) | payer OTHER ==
[2024-03-26] MEDS ORDERED: MECLIZINE HCL 12.5 MG TAB ONE (21:31)
[2024-03-26 21:49] LABS: Absolute Lymphocytes (CBC) 0.7 K/uL (0.7-4.9); Absolute Monocytes 1.3 K/uL (0.1-1.3); Absolute Neutrophil 15.2 K/uL (1.8-8.0); Basophils % 0.2 % (0-1.3); Eosinophils % 0.2 % (0-4.4); Hematocrit 44.1 % (39.6-49.0); Hemoglobin 14.8 g/dL (13.6-17.9); Lymphocytes % 4.3 % (15.3-44.8); MCH 32.2 pg (27.0-35.0); MCHC 33.4 g/dL (32.0-36.0); MCV 96.4 fL (80-100); Monocytes % 7.5 % (3.3-12.3); Neutrophils % 87.8 % (41.7-73.7); Platelets 242 thou/uL (152-406); RBC Red Blood Cell Count 4.58 M/uL (4.33-5.43); Red Cell Distribution Width 13.8 % (12.1-15.2)
[2024-03-26 21:57] LABS: ALT/SGPT 16 U/L (16-61); AST/SGOT 18 U/L (15-37); Albumin/Globulin Ratio 0.8 (1.1-1.8); Alkaline Phosphatase 60 U/L (45-117); Anion Gap 8.8 mEq/L (5.0-15.0); BUN Blood Urea Nitrogen 17 mg/dL (7-18); Bicarbonate 28 mEq/L (21-32); Bilirubin Total 0.4 mg/dL (0.2-1.0); Globulin 3.9 g/dL (2.3-3.5); Glomerular Filtration Rate 54 ml/min (=/>90); Glucose Level 122 mg/dL (74-106); NT PRO-BNP 195 pg/mL (<125); Potassium 3.8 mEq/L (3.5-5.1); Protein, Total 6.9 g/dL (6.4-8.2); Sodium Level 136 mEq/L (136-145)
[2024-03-26 22:02] LABS: PT Prothrombin Time 12.4 SECONDS (9.4-12.5); PTT, Activated Partial Thromb 31.4 SECONDS (24.3-36.9); Protime INR 1.11
[2024-03-26 22:03] LABS: Bilirubin Direct < 0.2 mg/dL (0-0.2); Bilirubin Indirect, Calculated 0.2 mg/dL (0.2-0.8)
--- NOTE | 2024-03-26 22:17 | RAD REPORT ---
EXAM: CT brain without contrast HISTORY: fall;Dizziness COMPARISON: None TECHNIQUE: Multiple contiguous axial images were obtained and a CT of the brain without contrast. Sag ittal and coronal reformats were performed. One or more of the following dose reduction techniques were used: Automated exposure control, adjust ment of the mA and/or kV according to patient size, and/or iterative reconstruction. FINDINGS: No evidence of hydrocephalus, intracranial hemorrhage, or extra-axial fluid collection. Mild brain atrophy with mild periventricular and deep white matter chronic microvascular ischemic ch anges present. Moderate mucous retention cyst versus polyp in the left maxillary antrum. The calvarium is intact. The visualized paranasal sinuses and mastoid air cells are essentially clear . IMPRESSION: No evidence of acute intracranial abnormality. EXAM: CT of the cervical spine without contrast HISTORY: Neck pain, injury fall;Dizziness TECHNIQUE: Multiple contiguous axial images were obtained in a CT of the cervical spine without contr ast. Sagittal and coronal reformats were performed. FINDINGS: The vertebral bodies demonstrate normal height and alignment. No evidence of acute fracture or subluxation.. No degenerative changes are present. No prevertebral soft tissue swelling is seen. The posterior facets are well aligned. Normal alignment of the skull base with the cervical spine is seen. The lung apices are unremarkable. IMPRESSION: No evidence of acute osseous abnormality of the cervical spine.
--- NOTE | 2024-03-26 22:17 | RAD REPORT ---
EXAMINATION: ONE VIEW CHEST XR CLINICAL INDICATION: dizziness TECHNIQUE: Frontal chest projection is submitted. Examination is limited by patient positioning and t echnique. COMPARISON: 09/22/2022 FINDINGS: Mild patchy opacity is present in the right lung base likely infiltrate/pneumonia. The lungs otherwis e clear. The heart is normal in size. No displaced fractures identified. IMPRESSION: Mild right lower lobe pneumonia.
[2024-03-26 22:35] LABS: Band Neutrophils 20 % (0-1); Blood Morphology Comment NOTED (NOT SEEN); Burr Cells 1+; Differential Total Cells Count 100; Lymphocytes 1 % (15-42); Monocytes 4 % (0-10); Platelet Estimate ADEQ; Reactive Lymphocytes 1 %; Segmented Neutrophils 74 % (40-80)
[2024-03-26] MEDS ORDERED: NA CHLORIDE 0.9% 500 ML ONE (22:38)
[2024-03-26] MEDS ORDERED: levoFLOXacin 750 MG TAB ONE (22:38)
[2024-03-26 23:14] LABS: Renal Epithelial <5 /HPF (None Seen); Specific Gravity 1.019 (1.005-1.030); Sqamous Epithelial <5 /HPF (None Seen); Urine Bacteria None Seen /HPF (<20); Urine Bilirubin NEGATIVE (Negative); Urine Blood Negative (Negative); Urine Clarity Clear (Clear); Urine Color Light-Yellow (Yellow); Urine Culture Reflex Order NOT NEEDED; Urine Glucose NEGATIVE (Negative); Urine Ketones NEGATIVE (Negative); Urine Microscopic Reflex YN ORDER UMIC; Urine Mucus Slight /HPF (None Seen); Urine Nitrite NEGATIVE (Negative); Urine Protein NEGATIVE (Negative); Urine RBC <5 /HPF (None Seen); Urine Urobilinogen Normal (Normal); Urine WBC <5 /HPF (<5); Urine pH 6.5 (5.0-7.0)
[2024-03-26 23:38] LABS: SARS-CoV-2 Antigen CONTROL BLUE LINE VIS/BG OK; SARS-CoV-2 Antigen Rapid Res Negative (Negative)
--- NOTE | 2024-03-26 23:41 | EDPHYS ---
Physician Documentation [facility] Name: Gian Lombardi Age: 73 yrs Sex: Male : 1950 Arrival Date: 03/26/2024 Time: 20:54 Bed 20 Private MD: ED Physician Melania Bill HPI: 03/26 21:10 This 73 yrs old Male presents to ER via Unassigned with complaints of Dizziness, cp General Weakness. 21:10 The patient presents with dizziness, lightheadedness, feeling off balance. cp 21:10 Onset: The symptoms/episode began/occurred today, after dinner around 1700. cp 21:10 Context: occurred while the patient was walking, just prior to the episode the patient cp experienced no apparent symptoms. Associated signs and symptoms: Pertinent negatives: abdominal pain, chest pain, diaphoresis, focal weakness, head injury, headache, syncope. Severity of symptoms: in the emergency department the symptoms are unchanged despite EMS interventions. Patient's baseline: Neuro: alert and fully oriented, Motor: no deficits, Ambulation: walks without assistance, Speech: slow. Historical: - Allergies: 23:24 No Known Allergies; rg5 - PMHx: 23:24 Hypertensive disorder; Intellectual disability; Hypercholesterolemia; rg5 - Immunization history:: Adult Immunizations up to date. - Infectious Disease History:: Denies. - Social history:: Smoking status: unknown. ROS: 21:15 Constitutional: Negative for body aches, chills, fever, poor PO intake, cp 21:15 Eyes: Negative for injury, pain, redness, and discharge, cp 21:15 ENT: Negative for drainage from ear(s), ear pain, sore throat, difficulty swallowing, difficulty handling secretions, 21:15 Cardiovascular: Negative for chest pain, palpitations, 21:15 Respiratory: Negative for cough, shortness of breath, wheezing, 21:15 Abdomen/GI: Negative for abdominal pain, vomiting, diarrhea, constipation, 21:15 Neuro: Positive for dizziness, weakness, Negative for altered mental status, headache, syncope, near syncope, 21:15 All other systems are negative, Exam: 21:20 Constitutional: The patient appears in no acute distress, alert, awake, cp non-diaphoretic, non-toxic, well developed, well nourished, 21:20 Head/Face: Normocephalic, atraumatic. cp 21:20 Eyes: Periorbital structures: appear normal, Pupils: equal, round, and reactive to light and accomodation, Extraocular movements: intact throughout, Conjunctiva: normal, no exudate, no injection, Lids and lashes: appear normal, bilaterally, 21:20 ENT: External ear(s): are unremarkable, Nose: is normal, Mouth: Lips: moist, Oral mucosa: moist, Posterior pharynx: Airway: no evidence of obstruction, patent, 21:20 Neck: ROM/movement: is normal, is supple, without pain, no range of motions limitations, 21:20 Chest/axilla: Inspection: normal, 21:20 Cardiovascular: Rate: tachycardic, Rhythm: regular, Edema: is not appreciated, JVD: is not appreciated, 21:20 Respiratory: the patient does not display signs of respiratory distress, Respirations: normal, no use of accessory muscles, no retractions, labored breathing, is not present, Breath sounds: are clear throughout, no decreased breath sounds, no stridor, no wheezing, 21:20 Abdomen/GI: Inspection: abdomen appears normal, Palpation: abdomen is soft and non-tender, in all quadrants, 21:20 Neuro: Orientation: to person, place, situation, Mentation: able to follow commands, Cerebellar function: Romberg testing is negative, Motor: moves all fours, no focal deficits, Sensation: no obvious gross deficits, 21:46 ECG was reviewed by the Attending Physician. cp Vital Signs: 21:00 BP 126 / 92; Pulse 104; Resp 18; Temp 98.3; Pulse Ox 96% on R/A; Pain 0/10; rg5 22:16 BP 118 / 83; Pulse 93; Resp 18; Pulse Ox 96% on R/A; Pain 0/10; rg5 23:30 BP 120 / 82; Pulse 99; Resp 17; Temp 98; Pulse Ox 97% on R/A; Pain 0/10; rg5 21:00 Pain Scale: Adult rg5 22:16 Pain Scale: Adult rg5 23:30 Pain Scale: Adult rg5 MDM: 20:58 Medical Screening Exam initiated sp3 23:40 Data reviewed: vital signs, nurses notes, lab test result(s), EKG, radiologic studies, cp CT scan, plain films. 12 21:07 Order name: Basic Metabolic Panel; Complete Time: 22:28 cp 12 22:28 Interpretation: Normal except: GLUC 122; CRE 1.39; GFR 54. cp 03/26 21:07 Order name: CBC with Diff; Complete Time: 22:54 cp 12 22:33 Interpretation: Normal except: WBC 17.30; DANK% 87.8; LYM% 4.3; NEUT A 15.2. cp 03/26 21:07 Order name: LFT's; Complete Time: 22:28 cp 03/26 21:07 Order name: Magnesium; Complete Time: 22:28 cp 03/26 21:07 Order name: NT PRO-BNP; Complete Time: 22:28 cp 03/26 21:07 Order name: PT-INR; Complete Time: 22:28 cp 03/26 21:07 Order name: Troponin HS; Complete Time: 22:28 cp 03/26 21:07 Order name: Ptt, Activated; Complete Time: 22:28 cp 03/26 21:44 Order name: Urinalysis w/ reflexes; Complete Time: 23:39 cp 03/26 21:52 Order name: Manual Differential; Complete Time: 22:54 EDMS / 22:54 Interpretation: Normal except: BANDS [F] 20; LYM 1. cp 03/26 22:29 Order name: Influenza Screen (a \T\ B); Complete Time: 23:42 cp 12 23:42 Interpretation: Reviewed. cp 03/26 22:29 Order name: SARS RAPID; Complete Time: 23:39 cp 03/26 21:07 Order name: XRAY Chest (1 view); Complete Time: 22:28 cp 03/26 21:07 Order name: CT Head C Spine; Complete Time: 22:28 cp 03/26 21:07 Order name: EKG; Complete Time: 21:08 cp 03/26 21:07 Order name: Cardiac monitoring; Complete Time: 21:34 cp 03/26 21:07 Order name: EKG - Nurse/Tech; Complete Time: 21:34 cp 03/26 21:07 Order name: IV Saline Lock; Complete Time: 21:34 cp 03/26 21:07 Order name: Labs collected and sent; Complete Time: 21:34 cp 03/26 21:07 Order name: O2 Per Protocol; Complete Time: 21:34 cp 03/26 21:07 Order name: O2 Sat Monitoring; Complete Time: 21:34 cp EC:46 Rate is 103 beats/min. Rhythm is regular. NV interval is normal. QRS interval is cp normal. QT interval is normal. T waves are Inverted in lead aVR. Interpreted by me. Reviewed by me. Administered Medications: 21:33 Drug: Meclizine PO 25 mg PO once Route: PO; rg5 21:48 Follow up: Response: No adverse reaction rg5 22:39 Drug: NS 0.9% IV 500 ml 500 ml IV at 1 bolus once; to be given as a bolus over 30 rg5 minutes Volume: 500 ml; Route: IV; Rate: 1 bolus; Site: right antecubital; 23:23 Follow up: IV Status: Completed infusion; IV Intake: 500ml rg5 22:39 Drug: LevOfloxacin PO 750 mg PO once Route: PO; rg5 23:59 Follow up: Response: No adverse reaction rg5 Disposition Summary: 03/26/24 23:40 Discharge Ordered Notes: Location: Home cp Problem: new cp Symptoms: have improved cp Condition: Stable cp Diagnosis - Dizziness and giddiness cp - Pneumonia in diseases classified elsewhere cp - Weakness cp Followup: cp - With: Private Physician - When: 2 - 3 days - Reason: Recheck today's complaints Discharge Instructions: - Discharge Summary Sheet cp - Dizziness cp - Community-Acquired Pneumonia, Adult cp - Weakness cp Forms: - Medication Reconciliation Form cp - Antibiotic Education cp - Prescription Opioid Use cp - Patient Portal Instructions cp - Leadership Thank You Letter cp Prescriptions: - Meclizine 25 mg Oral Tablet - take 1 tablet ORAL route every 8 hours As needed; 30 tablet; Refills: 0, cp Product Selection Permitted - levofloxacin 500 mg Oral tablet - take 1 tablet ORAL route once daily for 8-10 days start taking evening of cp 03-27-2024; 9 tablet; Refills: 0, Product Selection Permitted Signatures: Dispatcher [employer] EDMS Anders Friend PA PA cp Patel, Setul, MD MD sp3 Deshawn Mejia RN RN rg5 Corrections: (The following items were deleted from the chart) 21:08 21:08 BASIC METABOLIC PANEL+C.LAB.BRZ ordered. EDMS EDMS 21:08 21:08 CBC+H.LAB.BRZ ordered. EDMS EDMS 21: 21:08 HEPATIC FUNCTION+C.LAB.BRZ ordered. EDMS EDMS : 21:08 MAGNESIUM+C.LAB.BRZ ordered. EDMS EDMS : 21:08 PROBNP+C.LAB.BRZ ordered. EDMS EDMS : 21:08 PROTIME (+INR)+COAG.LAB.BRZ ordered. EDMS EDMS : 21:08 Troponin High Sensitivity+C.LAB.BRZ ordered. EDMS EDMS : 21:08 PTT, ACTIVATED+COAG.LAB.BRZ ordered. EDMS EDMS
--- NOTE | 2024-03-26 23:41 | ER ---
Nurse's Notes [facility] Name: Gian Lombardi Age: 73 yrs Sex: Male : 1950 Arrival Date: 03/26/2024 Time: 20:54 Bed 20 Private MD: Diagnosis: Dizziness and giddiness;Pneumonia in diseases classified elsewhere;Weakness Presentation: 03/26 21:00 Chief complaint: EMS states: pt had a dizziness, feels weak and fell down ealriier rg5 after dinner. he has hx of multiple due to dizziness. 21:00 Coronavirus screen: Client denies travel out of the [place] in the last 14 days. Ebola rg5 Screen: Patient negative for fever greater than or equal to 101.5 degrees Fahrenheit, and additional compatible Ebola Virus Disease symptoms. Initial Sepsis Screen: Does the patient meet any 2 criteria? No. Patient's initial sepsis screen is negative. Does the patient have a suspected source of infection? No. Patient's initial sepsis screen is negative. Risk Assessment: Do you want to hurt yourself or someone else? Patient reports no desire to harm self or others. Onset of symptoms was March 26, 2024. 21:00 Method Of Arrival: EMS: [facility] rg5 21:00 Acuity: AVIS 3 rg5 Triage Assessment: 21:00 General: Appears in no apparent distress. distressed, comfortable, Behavior is calm, rg5 cooperative, appropriate for age. 21:00 Pain: Denies pain. EENT: No deficits noted. Neuro: Level of Consciousness is awake, rg5 alert, obeys commands, Oriented to person, place, time, Reports dizziness, weakness. Cardiovascular: Denies chest pain, Heart tones S1 S2 Patient's skin is warm and dry. Rhythm is sinus tachycardia. Respiratory: Airway is patent Trachea midline Respiratory effort is even, unlabored, Respiratory pattern is regular, symmetrical. GI: Abdomen is round non-distended. : No signs and/or symptoms were reported regarding the genitourinary system. Derm: Skin is intact, Skin is dry, Skin is normal, Skin temperature is warm. Musculoskeletal: Circulation, motion, and sensation intact. Range of motion: intact in all extremities. Historical: - Allergies: 23:24 No Known Allergies; rg5 - PMHx: 23:24 Hypertensive disorder; Intellectual disability; Hypercholesterolemia; rg5 - Immunization history:: Adult Immunizations up to date. - Infectious Disease History:: Denies. - Social history:: Smoking status: unknown. Screenin:00 [facility] ED Fall Risk Assessment (Adult) History of falling in the last 3 months, rg5 including since admission Yes- physiologic fall (2 pts) Confusion or Disorientation No (0 pts) Intoxicated or Sedated No (0 pts) Impaired Gait Yes (1 pt) Mobility Assist Device Used Yes (1 pt) Altered Elimination No (0 pt) Score/Fall Risk Level 0 - 2 = Low Risk Oriented to surroundings, Maintained a safe environment, Educated pt \T\ family on fall prevention, incl call for assistance when getting out of bed, Hourly rounding (assess needs \T\ fall precautionary measures) done. Abuse screen: Denies threats or abuse. Nutritional screening: No deficits noted. Tuberculosis screening: No symptoms or risk factors identified. Assessment: 21:30 Reassessment: Patient and/or family updated on plan of care and expected duration. Pain rg5 level reassessed. Patient is alert, oriented x 3, equal unlabored respirations, skin warm/dry/pink. 22:30 Reassessment: Patient and/or family updated on plan of care and expected duration. Pain rg5 level reassessed. Patient is alert, oriented x 3, equal unlabored respirations, skin warm/dry/pink. 23:29 Reassessment: Patient and/or family updated on plan of care and expected duration. Pain rg5 level reassessed. Patient is alert, oriented x 3, equal unlabored respirations, skin warm/dry/pink. Vital Signs: 21:00 BP 126 / 92; Pulse 104; Resp 18; Temp 98.3; Pulse Ox 96% on R/A; Pain 0/10; rg5 22:16 BP 118 / 83; Pulse 93; Resp 18; Pulse Ox 96% on R/A; Pain 0/10; rg5 23:30 BP 120 / 82; Pulse 99; Resp 17; Temp 98; Pulse Ox 97% on R/A; Pain 0/10; rg5 21:00 Pain Scale: Adult rg5 22:16 Pain Scale: Adult rg5 23:30 Pain Scale: Adult rg5 ED Course: 20:00 Triage completed. rg5 20:55 Patient arrived in ED. jj6 20:58 Melania Bill MD is Attending Physician. sp3 20:58 Anders Friend PA is PHCP. sp3 21:00 Arm band placed on left wrist. EKG completed in triage. Results shown to MD. rg5 21:00 Patient has correct armband on for positive identification. Door closed. Noise rg5 minimized. Warm blanket given. 21:00 No provider procedures requiring assistance completed. Inserted saline lock: 20 gauge rg5 in right antecubital area, using aseptic technique. Blood collected. Flushed with 10 mL NS. 21:15 Deshawn Mejia, RN is Primary Nurse. rg5 22:10 CT Head C Spine In Process Unspecified. EDMS 22:11 XRAY Chest (1 view) In Process Unspecified. EDMS 23:57 Provided Education on: post er care done. rg5 23:57 IV discontinued, bleeding controlled, No redness/swelling at site. Pressure dressing rg5 applied. Administered Medications: 21:33 Drug: Meclizine PO 25 mg PO once Route: PO; rg5 21:48 Follow up: Response: No adverse reaction rg5 22:39 Drug: NS 0.9% IV 500 ml 500 ml IV at 1 bolus once; to be given as a bolus over 30 rg5 minutes Volume: 500 ml; Route: IV; Rate: 1 bolus; Site: right antecubital; 23:23 Follow up: IV Status: Completed infusion; IV Intake: 500ml rg5 22:39 Drug: LevOfloxacin PO 750 mg PO once Route: PO; rg5 23:59 Follow up: Response: No adverse reaction rg5 Medication: 21:00 VIS not applicable for this client. rg5 Intake: 23:23 IV: 500ml; Total: 500ml. rg5 Outcome: 23:40 Discharge ordered by . cp 23:57 Discharged to home via wheelchair, rg5 23:57 Condition: stable 23:57 Discharge instructions given to patient, family, Instructed on discharge instructions, follow up and referral plans. Demonstrated understanding of instructions, follow-up care, medications, Prescriptions given X 2, 12/02 00:01 Patient left the ED. rg5 Signatures: Dispatcher [employer] EDMN Anders Friend PA PA cp Melania Bill MD MD sp3 Shahida Swain jj6 Deshawn Mejia RN RN rg5 Corrections: (The following items were deleted from the chart) 01:44 03/26 23:24 Triage completed. rg5 rg5
[2024-03-27 03:41] VITALS: BP 120/82; TEMP 98; O2SAT 97
--- NOTE | 2024-03-27 10:17 | EKG ---
Test Date: 2024-03-26 Test Time: 21:40:[address] Engineer: [place] MEASUREMENT RESULTS: Intervals: Rate: 103 KS: 140 QRSD: 82 QT: 326 QTc: 427 [place]: P: 69 KS: 140 QRS: 67 T: 69 INTERPRETIVE STATEMENTS: Sinus tachycardia Nonspecific ST abnormality Abnormal ECG Compared to ECG 09/22/2022 00:34:18 ST (T wave) deviation now present Sinus rhythm no longer present Electronically Signed On 03-27-24 10:17:10 [employer]OD [employer]AIN[employer] by Neftaly Masterson
== END 2024-03-27 00:01 | disposition home or self-care (01) ==
LOC: ER 20:54
DX: R42 Dizziness and giddiness (principal); J18.8 Other pneumonia, unspecified organism; R53.1 Weakness; I10 Essential (primary) hypertension; E78.00 Pure hypercholesterolemia, unspecified; F79 Unspecified intellectual disabilities
CPT/HCPCS: 93005; 85025; 81001; 80048; 36415; 83735; 85610; 80076; 85730; 84484; 83880; 87804 ×2; 70450; 72125; 71045; 96360; 99285; 87811; J8597; J7040

== ENCOUNTER 2024-06-11 00:35 | Inpatient (IN) | payer OTHER ==
--- OUTSIDE RECORDS SUMMARY | 2024-06-11 00:38 | XMS REPORT | Continuity of Care Document ---
Author Name Unknown Address [address] [facility] 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 Ordering Clinician Indication Dosage Frequency Signature (SIG) Comments Components Source Potassium Chloride Potassium Chloride No Potassium Chloride Atorvastati n Calcium 80 MG Atorvastati n Calcium 80 MG No 1{table t} QD Atorvastat in Calcium 80 MG Paxil 20 MG Paxil 20 MG No 1{table t_in_th e_morni ng} QD Paxil 20 MG Tylenol 325 MG Tylenol 325 MG No 1{table t_as_ne eded} 6xD Tylenol 325 MG Encounters Start Date/Time End Date/Time Encounter Type Admission Type Attending Clinicians Care Facility Care Department Encounter ID Source 2024-01-04 13:57:00 Outpatient Alex Shea [facility] [id number] [facility] 2023-10-05 13:47:01 Outpatient Alex Shea [facility] [id number] [facility] 2024-01-04 00:00:00 2024-01-04 00:00:00 (F/U) Follow Up Visit CLS CLS [id number] [facility]
[2024-06-11] MEDS ORDERED: FAMOTIDINE 20 MG/2 ML VIAL IV ONE (00:56)
[2024-06-11] MEDS ORDERED: ASPIRIN 81 MG CHEWABLE TABLET ONE ×2 (00:56→08:34)
[2024-06-11] MEDS ORDERED: NA CHLORIDE 0.9% 2,000 ML ONE (00:57)
[2024-06-11 01:32] LABS: PT Prothrombin Time 12.5 SECONDS (9.4-12.5); Protime INR 1.19
[2024-06-11 01:33] LABS: Absolute Eosinophils 0.1 K/uL (0-0.5); Absolute Lymphocytes (CBC) 2.4 K/uL (0.7-4.9); Absolute Monocytes 0.9 K/uL (0.1-1.3); Absolute Neutrophil 3.1 K/uL (1.8-8.0); Basophils % 0.3 % (0-1.3); Eosinophils % 1.7 % (0-4.4); Hematocrit 41.1 % (39.6-49.0); Hemoglobin 14.4 g/dL (13.6-17.9); Lymphocytes % 36.8 % (15.3-44.8); MCH 32.8 pg (27.0-35.0); MCHC 34.9 g/dL (32.0-36.0); MCV 94.1 fL (80-100); MPV 8.3 fL (7.6-11.3); Monocytes % 13.9 % (3.3-12.3); Neutrophils % 47.3 % (41.7-73.7); Nucleated Red Blood Cells % 0.1 % (0-0); Platelets 199 thou/uL (152-406); RBC Red Blood Cell Count 4.37 M/uL (4.33-5.43); Red Cell Distribution Width 14.3 % (12.1-15.2)
[2024-06-11 01:47] LABS: ALT/SGPT 15 U/L (16-61); AST/SGOT 16 U/L (15-37); Albumin 3.1 g/dL (3.4-5.0); Alkaline Phosphatase 46 U/L (45-117); BUN Blood Urea Nitrogen 18 mg/dL (7-18); Bicarbonate 30 mEq/L (21-32); Bilirubin Total 0.3 mg/dL (0.2-1.0); Globulin 3.2 g/dL (2.3-3.5); Glomerular Filtration Rate 52 ml/min (=/>90); Glucose Level 94 mg/dL (74-106); Lipase 34 U/L (13-75); Magnesium 2.4 mg/dL (1.6-2.4); NT PRO-BNP 198 pg/mL (<125); Protein, Total 6.3 g/dL (6.4-8.2); Sodium Level 138 mEq/L (136-145); Troponin High Sensitivity 5.3 pg/mL (<58.9); Valproic Acid (Depakene) Level 109.2 mcg/mL (50.0-100.0)
[2024-06-11 01:58] LABS: Bilirubin Direct < 0.2 mg/dL (0-0.2); Bilirubin Indirect, Calculated 0.1 mg/dL (0.2-0.8)
--- NOTE | 2024-06-11 02:14 | EDPHYS ---
Physician Documentation [facility] Name: Gian Lombardi Age: 73 yrs Sex: Male : 1950 Arrival Date: 06/11/2024 Time: 00:35 Bed 2 Private MD: ED Physician Anders Leon HPI: 06/11 00:50 This 73 yrs old Male presents to ER via EMS with complaints of Chest Pain. papo 00:50 The patient or guardian reports chest pain that is located primarily in the substernal papo area, epigastric area. Onset: 1 day(s) ago. The pain does not radiate. Associated signs and symptoms: The patient has no apparent associated signs or symptoms. The chest pain is described as aching. Severity of pain: At its worst the pain was moderate in the emergency department the pain is unchanged. The patient has experienced similar episodes in the past, a few times. Historical: - Allergies: 00:39 No Known Allergies; al5 - PMHx: 00:39 Hypercholesterolemia; Hypertensive disorder; Intellectual disability; kidney disease; al5 - PSHx: 00:39 None; al5 - Immunization history:: Adult Immunizations up to date. - Infectious Disease History:: Denies. - Social history:: Smoking status: Patient denies any tobacco usage or history of. - Family history:: not pertinent. ROS: 00:50 Constitutional: Negative for fever, chills, and weight loss, Eyes: Negative for injury, papo pain, redness, and discharge, ENT: Negative for injury, pain, and discharge, Neck: Negative for injury, pain, and swelling, Respiratory: Negative for shortness of breath, cough, wheezing, and pleuritic chest pain, Abdomen/GI: Negative for abdominal pain, nausea, vomiting, diarrhea, and constipation, Back: Negative for injury and pain, : Negative for injury, bleeding, discharge, and swelling, MS/Extremity: Negative for injury and deformity, Skin: Negative for injury, rash, and discoloration, Neuro: Negative for headache, weakness, numbness, tingling, and seizure, Psych: Negative for depression, anxiety, suicide ideation, homicidal ideation, and hallucinations, Allergy/Immunology: Negative for hives, rash, and allergies, Endocrine: Negative for neck swelling, polydipsia, polyuria, polyphagia, and marked weight changes, Hematologic/Lymphatic: Negative for swollen nodes, abnormal bleeding, and unusual bruising, 00:50 Cardiovascular: Positive for chest pain, Exam: 00:51 Constitutional: This is a well developed, well nourished patient who is awake, alert, papo and in no acute distress. Head/Face: Normocephalic, atraumatic. Eyes: Pupils equal round and reactive to light, extra-ocular motions intact. Lids and lashes normal. Conjunctiva and sclera are non-icteric and not injected. Cornea within normal limits. Periorbital areas with no swelling, redness, or edema. ENT: Nares patent. No nasal discharge, no septal abnormalities noted. Tympanic membranes are normal and external auditory canals are clear. Oropharynx with no redness, swelling, or masses, exudates, or evidence of obstruction, uvula midline. Mucous membranes moist. Neck: Trachea midline, no thyromegaly or masses palpated, and no cervical lymphadenopathy. Supple, full range of motion without nuchal rigidity, or vertebral point tenderness. No Meningismus. Chest/axilla: Normal chest wall appearance and motion. Nontender with no deformity. No lesions are appreciated. Cardiovascular: Regular rate and rhythm with a normal S1 and S2. No gallops, murmurs, or rubs. Normal PMI, no JVD. No pulse deficits. Respiratory: Lungs have equal breath sounds bilaterally, clear to auscultation and percussion. No rales, rhonchi or wheezes noted. No increased work of breathing, no retractions or nasal flaring. Abdomen/GI: Soft, non-tender, with normal bowel sounds. No distension or tympany. No guarding or rebound. No evidence of tenderness throughout. Back: No spinal tenderness. No costovertebral tenderness. Full range of motion. Skin: Warm, dry with normal turgor. Normal color with no rashes, no lesions, and no evidence of cellulitis. MS/ Extremity: Pulses equal, no cyanosis. Neurovascular intact. Full, normal range of motion., bilateral aka Neuro: Awake and alert, GCS 15, oriented to person, place, time, and situation. Cranial nerves II-XII grossly intact. Motor strength 5/5 in all extremities. Sensory grossly intact. Cerebellar exam normal. Normal gait. Psych: Awake, alert, with orientation to person, place and time. Behavior, mood, and affect are within normal limits. 01:07 ECG was reviewed by the Attending Physician. [facility] Vital Signs: 00:38 BP 141 / 83; Pulse 82; Resp 16; Temp 98.2; Pulse Ox 96% on R/A; Weight 68.5 kg; Height al5 6 ft. 0 in. ; Pain 5/10; 01:00 BP 109 / 76; Pulse 75; Resp 18; Pulse Ox 99% on R/A; al5 01:30 BP 104 / 86; Pulse 76; Resp 16; Pulse Ox 98% on R/A; al5 02:00 BP 113 / 74; Pulse 77; Resp 17; Pulse Ox 95% on R/A; al5 02:30 BP 114 / 77; Pulse 75; Resp 16; Pulse Ox 97% on R/A; al5 03:00 BP 114 / 69; Pulse 77; Resp 15; Pulse Ox 97% on R/A; al5 04:00 BP 119 / 83; Pulse 75; Resp 20; Pulse Ox 99% on R/A; al5 00:38 Body Mass Index 20.48 (68.50 kg, 182.88 cm) al5 00:38 Pain Scale: Adult al5 MDM: 00:40 Medical Screening Exam initiated [facility] 00:52 Differential diagnosis: abnormal EKG, acute myocardial infarction, acute pericarditis, papo anxiety, coronary artery disease cholecystitis, Cholelithiasis costochondritis, hiatal hernia, pancreatitis, pneumonia, pulmonary embolus, stable angina, thoracic aortic disection, unstable angina. HEART Score: History: Slightly Suspicious (0), ECG: Non specific repolarization disturbance / LBTB / PM (1), Age: > or = 65 years (2), Risk Factors: > or = 3 Risk factors for atherosclerotic disease (2), [Hypercholesterolemia] [Hypertension] [+ Family HX] Troponin: < or = 1 x Normal Limit (0). The patient was given aspirin in the Emergency Department. Data reviewed: vital signs, nurses notes, lab test result(s), EKG, radiologic studies, plain films. Consideration of Admission/Observation Escalation of care including admission/observation considered. I considered the following discharge prescriptions or medication management in the emergency department Medications were administered in the Emergency Department. See MAR. Independent interpretation of the following test(s) in the Emergency Department EKG: See my EKG interpretation above. Historians other than the Patient: EMS: EMS WELL INFORMED. Counseling: I had a detailed discussion with the patient and/or guardian regarding the historical points, exam findings, and any diagnostic results supporting the discharge/admit diagnosis, lab results, radiology results, the need for further work-up and treatment in the hospital. 06/11 00:42 Order name: Basic Metabolic Panel; Complete Time: 03:47 [facility] 06/11 00:42 Order name: CBC with Diff; Complete Time: 01:49 [facility] 06/11 00:42 Order name: LFT's; Complete Time: 03:47 [facility] 06/11 00:42 Order name: Magnesium; Complete Time: 03:47 [facility] 06/11 00:42 Order name: NT PRO-BNP; Complete Time: 03:47 [facility] 06/11 00:42 Order name: PT-INR; Complete Time: 01:49 [facility] 06/11 00:42 Order name: Troponin HS; Complete Time: 03:47 [facility] 06/11 00:42 Order name: Lipase; Complete Time: 03:47 [facility] 06/11 00:42 Order name: Urinalysis w/ reflexes [facility] 06/11 00:42 Order name: Depakote; Complete Time: 03:47 [facility] 06/11 02:38 Order name: Basic Metabolic Panel [facility] 06/11 02:38 Order name: Basic Metabolic Panel [facility] 06/11 02:38 Order name: CBC with Automated Diff [facility] 06/11 02:38 Order name: CBC with Automated Diff [facility] 06/11 02:38 Order name: Lipid Profile [facility] 06/11 02:56 Order name: Lipid Profile; Complete Time: 03:47 [facility] 06/11 03:18 Order name: Hemoglobin A1c [facility] 06/11 12:50 Order name: Troponin High Sensitivity [facility] 06/11 00:42 Order name: XRAY Chest (1 view); Complete Time: 03:47 [facility] 06/11 00:42 Order name: CT Chest For PE Angio [facility] 06/11 02:38 Order name: Echo with Doppler [facility] 06/11 00:42 Order name: EKG; Complete Time: 00:43 [facility] 06/11 00:42 Order name: Cardiac monitoring; Complete Time: 01:12 [facility] 06/11 00:42 Order name: EKG - Nurse/Tech; Complete Time: 01:12 [facility] 06/11 00:42 Order name: IV Saline Lock; Complete Time: 00:47 papo 06/11 00:42 Order name: Labs collected and sent; Complete Time: 00:47 [facility]o 06/11 00:42 Order name: O2 Per Protocol; Complete Time: :47 [facility]o 06/11 00:42 Order name: O2 Sat Monitoring; Complete Time: 00:47 papo EC:07 Rate is 75 beats/min. Rhythm is regular. QRS [place] is Normal. WA interval is normal. QRS papo interval is normal. QT interval is normal. No Q waves. T waves are Normal. No ST changes noted. Clinical impression: NSR w/ Non-specific ST/T Changes and No evidence of ischemia. Interpreted by me. Reviewed by me. Administered Medications: 01:12 Drug: NS 0.9% IV (30 ml/kg) 30 ml/kg IV at bolus once; Sepsis Protocol; to be given as al5 a bolus over 90 minutes Route: IV; Rate: bolus; Site: left antecubital; 05:23 Follow up: Response: No adverse reaction; IV Status: Completed infusion; IV Intake: al5 2000ml ; per MD okeefe to dispense 2 L 01:12 Drug: Aspirin PO Chewable Tablet 162 mg PO once Route: PO; al5 02:20 Follow up: Response: No adverse reaction al5 01:12 Drug: Famotidine IVP 20 mg IVP once; dilute with 10 mL 0.9% NaCl; give over 2 minutes al5 Route: IVP; Site: left antecubital; 02:20 Follow up: Response: No adverse reaction al5 02:33 Drug: Enoxaparin Sub-Q 1 mg/kg Sub-Q once Route: Sub-Q; Site: right lower abdomen; al5 02:33 Follow up: Response: No adverse reaction al5 Disposition Summary: 06/11/24 02:13 Hospitalization Ordered Notes: Hospitalization Status: Observation papo Provider: Prince papo Swanson Condition: Stable papo Problem: new papo Symptoms: have improved papo Bed/Room Type: Standard papo Location: Telemetry/MedSurg (Inpatient)(06/11/24 14:19) sp Room Assignment: 415(06/11/24 14:19) sp Diagnosis - Chest pain, unspecified papo - Poisoning by other antiepileptic and sedative-hypnotic drugs, accidental papo (unintentional), initial encounter - Essential (primary) hypertension papo Forms: - Medication Reconciliation Form papo - SBAR form papo - Leadership Thank You Letter papo Signatures: Dispatcher [employer] EDAnders Dunham MD MD cha Pinkerton, Shawna sp Kruse, Vivian vk Langhorst, Amanda, RN RN al5 Corrections: (The following items were deleted from the chart) 00:43 00:43 BASIC METABOLIC PANEL+C.LAB.BRZ ordered. EDMS EDMS 00:43 00:43 CBC+H.LAB.BRZ ordered. EDMS EDMS 00:43 00:43 HEPATIC FUNCTION+C.LAB.BRZ ordered. EDMS EDMS 00:43 00:43 MAGNESIUM+C.LAB.BRZ ordered. EDMS EDMS 00:43 00:43 PROBNP+C.LAB.BRZ ordered. EDMS EDMS 00:43 00:43 PROTIME (+INR)+COAG.LAB.BRZ ordered. EDMS EDMS 00:43 00:43 Troponin High Sensitivity+C.LAB.BRZ ordered. EDMS EDMS 00:43 00:43 LIPASE+C.LAB.BRZ ordered. EDMS EDMS 00:43 00:43 Urinalysis+U.LAB.BRZ ordered. EDMS EDMS 00:43 00:43 VALPROIC ACID (DEPAKOTE)+C.LAB.BRZ ordered. EDMS EDMS 02:30 02:13 Telemetry/MedSurg (observation) papo vk 02:30 02:13 papo vk 02:53 02:38 Lipid Profile ordered. EDMS EDMS 14:19 02:30 [facility] ER HOLD vk sp 14:19 02:30 ERHOLD- vk sp
--- NOTE | 2024-06-11 02:14 | ER ---
Nurse's Notes [facility] Name: Gian Lombardi Age: 73 yrs Sex: Male : 1950 Arrival Date: 06/11/2024 Time: 00:35 Bed 2 Private MD: Diagnosis: Chest pain, unspecified;Poisoning by other antiepileptic and sedative-hypnotic drugs, accidental (unintentional), initial encounter;Essential (primary) hypertension Presentation: 06/11 00:38 Chief complaint: Patient states: c/o intermittent CP all day. Coronavirus screen: At al5 this time, the client does not indicate any symptoms associated with coronavirus-19. Ebola Screen: No symptoms or risks identified at this time. Initial Sepsis Screen: Does the patient meet any 2 criteria? No. Patient's initial sepsis screen is negative. Does the patient have a suspected source of infection? No. Patient's initial sepsis screen is negative. Risk Assessment: Do you want to hurt yourself or someone else? Patient reports no desire to harm self or others. Onset of symptoms was June 11, 2024. 00:38 Method Of Arrival: EMS: [facility] al5 00:38 Acuity: AVIS 2 al5 Triage Assessment: 00:41 General: Appears in no apparent distress. comfortable, Behavior is calm, cooperative. al5 Pain: Complains of pain in chest. EENT: No signs and/or symptoms were reported regarding the EENT system. Neuro: Level of Consciousness is awake, alert, obeys commands, Oriented to person, place, time, situation. Cardiovascular: Capillary refill < 3 seconds Patient's skin is warm and dry. Cardiovascular: Reports chest pain. Respiratory: Airway is patent Respiratory effort is even, unlabored, Respiratory pattern is regular, symmetrical. GI: No signs and/or symptoms were reported involving the gastrointestinal system. : No signs and/or symptoms were reported regarding the genitourinary system. Derm: Skin is intact, Skin is pink, warm \T\ dry. normal. Musculoskeletal: No signs and/or symptoms reported regarding the musculoskeletal system. Historical: - Allergies: 00:39 No Known Allergies; al5 - PMHx: 00:39 Hypercholesterolemia; Hypertensive disorder; Intellectual disability; kidney disease; al5 - PSHx: 00:39 None; al5 - Immunization history:: Adult Immunizations up to date. - Infectious Disease History:: Denies. - Social history:: Smoking status: Patient denies any tobacco usage or history of. - Family history:: not pertinent. Screenin:42 [facility] ED Fall Risk Assessment (Adult) History of falling in the last 3 months, al5 including since admission No falls in past 3 months (0 pts) Confusion or Disorientation No (0 pts) Intoxicated or Sedated No (0 pts) Impaired Gait Yes (1 pt) Mobility Assist Device Used Yes (1 pt) Altered Elimination No (0 pt) Score/Fall Risk Level 0 - 2 = Low Risk Oriented to surroundings, Maintained a safe environment, Hourly rounding (assess needs \T\ fall precautionary measures) done. Abuse screen: Denies threats or abuse. Denies injuries from another. Nutritional screening: No deficits noted. Tuberculosis screening: No symptoms or risk factors identified. Assessment: 00:42 Reassessment: see triage assessment. al5 00:42 Pain: Pain does not radiate. Pain began today. al5 01:23 Reassessment: Patient appears in no apparent distress at this time. No changes from al5 previously documented assessment. Patient and/or family updated on plan of care and expected duration. Pain level reassessed. Patient is alert, oriented x 3, equal unlabored respirations, skin warm/dry/pink. 03:00 Reassessment: Patient appears in no apparent distress at this time. No changes from al5 previously documented assessment. Patient and/or family updated on plan of care and expected duration. Pain level reassessed. Patient is alert, oriented x 3, equal unlabored respirations, skin warm/dry/pink. 04:04 Reassessment: Patient appears in no apparent distress at this time. No changes from al5 previously documented assessment. Patient and/or family updated on plan of care and expected duration. Pain level reassessed. Patient is alert, oriented x 3, equal unlabored respirations, skin warm/dry/pink. patient admit to ED Hold. Vital Signs: 00:38 BP 141 / 83; Pulse 82; Resp 16; Temp 98.2; Pulse Ox 96% on R/A; Weight 68.5 kg; Height al5 6 ft. 0 in. ; Pain 5/10; 01:00 BP 109 / 76; Pulse 75; Resp 18; Pulse Ox 99% on R/A; al5 01:30 BP 104 / 86; Pulse 76; Resp 16; Pulse Ox 98% on R/A; al5 02:00 BP 113 / 74; Pulse 77; Resp 17; Pulse Ox 95% on R/A; al5 02:30 BP 114 / 77; Pulse 75; Resp 16; Pulse Ox 97% on R/A; al5 03:00 BP 114 / 69; Pulse 77; Resp 15; Pulse Ox 97% on R/A; al5 04:00 BP 119 / 83; Pulse 75; Resp 20; Pulse Ox 99% on R/A; al5 00:38 Body Mass Index 20.48 (68.50 kg, 182.88 cm) al5 00:38 Pain Scale: Adult al5 ED Course: 00:37 Patient arrived in ED. al5 00:39 Triage completed. al5 00:40 Anders Leon MD is Attending Physician. papo 00:42 Arm band placed on right wrist. Patient placed in the treatment room, on a stretcher, al5 in view of staff members, on case monitor, on pulse oximetry. 00:43 No provider procedures requiring assistance completed. Maintain EMS IV. Dressing al5 intact. Good blood return noted. Site clean \T\ dry. Gauge \T\ site: 20G LAC. Flushed with 10 mL NS. Patient maintains SpO2 saturation greater than 95% on room air. 00:47 Olga Lidia Su, RN is Primary Nurse. al5 00:47 Patient has correct armband on for positive identification. Bed in low position. Call al5 light in reach. Side rails up X2. Provided Education on: plan of care. Client placed on continuous cardiac and pulse oximetry monitoring. NIBP monitoring applied. manager monitoring on. 01:00 EKG done, by ED staff. sa1 01:05 Initial lab(s) drawn, by de, sent to lab. sa1 01:38 X-ray completed. Portable x-ray completed in exam room. Patient tolerated procedure mh1 well. 01:39 XRAY Chest (1 view) In Process Unspecified. EDMS 02:09 Prince Swanson MD is Hospitalizing Provider. papo 03:01 CT Chest For PE Angio In Process Unspecified. EDMS 04:04 Patient admitted, IV remains in place. al5 12:02 Diet: DELIVERED LUNCH TRAY TO PT. sp Administered Medications: 01:12 Drug: NS 0.9% IV (30 ml/kg) 30 ml/kg IV at bolus once; Sepsis Protocol; to be given as al5 a bolus over 90 minutes Route: IV; Rate: bolus; Site: left antecubital; 05:23 Follow up: Response: No adverse reaction; IV Status: Completed infusion; IV Intake: al5 2000ml ; per MD okeefe to dispense 2 L 01:12 Drug: Aspirin PO Chewable Tablet 162 mg PO once Route: PO; al5 02:20 Follow up: Response: No adverse reaction al5 01:12 Drug: Famotidine IVP 20 mg IVP once; dilute with 10 mL 0.9% NaCl; give over 2 minutes al5 Route: IVP; Site: left antecubital; 02:20 Follow up: Response: No adverse reaction al5 02:33 Drug: Enoxaparin Sub-Q 1 mg/kg Sub-Q once Route: Sub-Q; Site: right lower abdomen; al5 02:33 Follow up: Response: No adverse reaction al5 Medication: 00:42 VIS not applicable for this client. al5 Intake: 05:23 IV: 2000ml; Total: 2000ml. al5 Outcome: 02:13 Decision to Hospitalize by Provider. papo 04:04 Admitted to ER Hold. Please see [facility] for further documentation. al5 04:04 Condition: stable 04:04 Instructed on the need for admit, 15:21 Patient left the ED. bp Signatures: Dispatcher [employer] EDMD Anders Leon MD MD cha Pinkerton, Shawna sp Harvey, Martha 1 Haseeb Adamson RN RN Olga Lidia Hdez RN RN al5 Sultan Dillan 1 Corrections: (The following items were deleted from the chart) 05:22 04:29 Reassessment: Patient appears in no apparent distress at this time. No changes al5 from previously documented assessment. Patient and/or family updated on plan of care and expected duration. Pain level reassessed. Patient is alert, oriented x 3, equal unlabored respirations, skin warm/dry/pink. al5 05:23 00:42 Reassessment: see triage assessment al5 al5
[2024-06-11] MEDS ORDERED: ENOXAPARIN 80 MG/0.8 ML SQ ONE (02:29)
[2024-06-11] MEDS ORDERED: NITROGLYCERIN 0.4 MG/TAB SL PRN ×2 (02:34→04:10)
--- NOTE | 2024-06-11 02:35 | RAD REPORT ---
CLINICAL HISTORY: Chest pain. COMPARISON: XR Chest 03/26/2024. TECHNIQUE: XR CHEST 1 VIEW 06/11/2024 12:42 AM SENIOR IT BUSINESS ANALYST FINDINGS: Cardiac silhouette is normal in size. Lungs are clear without consolidation, atelectasis, mass or radha ma. There is no pleural effusion. There is no pneumothorax. There are no acute osseous findings. IMPRESSION: Clear lungs. Electronically signed by: Edinson Gillespie MD 06/11/2024 02:07 AM SENIOR IT BUSINESS ANALYST RP Due to temporary technical issues with the PACS/AddMyBest reporting system, reports are being sean d by the in-house radiologist without review as a courtesy to ensure prompt reporting the interpreting radiologist is fully responsible for the content of the report. Transcribed Date/Time: 06/11/2024 2:35 AM
[2024-06-11 03:07] LABS: HDL Cholesterol 48 mg/dL (40-60); LDL Cholesterol, Calculated 103 mg/dL (<130); LDL Cholesterol,Calc NonReport 103
--- NOTE | 2024-06-11 03:16 | P.HP ---
Certification for Inpatient Patient admitted to: Observation With expected LOS: <2 Midnights Practitioner: I am a practitioner with admitting privileges, knowledge of patient current condition, hospital course, and medical plan of care. Services: Services provided to patient in accordance with Admission requirements found in Title 42 Section 412.3 of the Code of Federal Regulations Patient History Date of Service: 06/11/24 Reason for admission: chest pain History of Present Illness: Patient is a 73-year-old male with a past medical history of hypertension, hyperlipidemia and CKD stage III. He is being admitted after he presented with chest pain. He is reporting a substernal chest pain involving the epigastric area as well. His first troponin is negative. EKG shows normal sinus rhythm, no ST elevations or depressions. He received aspirin, IV fluid and famotidine in the ER. Allergies No Known Drug Allergies Allergy (Verified 09/16/22 05:48) Home Medications: Acetaminophen [Tylenol] 2 tab PO BEDTIME 09/16/22 Acetaminophen [Tylenol] 2 tab PO Q6H PRN 09/16/22 PARoxetine HCL [Paxil] 1 tab PO DAILY 09/16/22 Potassium Chloride 10 meq PO DAILY 09/16/22 Pravastatin Sodium 20 mg PO BEDTIME 09/16/22 hydroCHLOROthiazide [Hydrochlorothiazide] 1 tab PO DAILY 09/16/22 lisinopriL [Lisinopril] 1 tab PO DAILY 09/16/22 - Past Medical/Surgical History -: HTN - Social History Caffeine use: No Physical Examination - Physical Exam General: In no apparent distress HEENT: Atraumatic, Normocephalic Respiratory: Clear to auscultation bilaterally, Normal air movement Cardiovascular: No edema, Normal pulses, Regular rate/rhythm, Normal S1 S2 Neurological: Abnormal speech - Studies Laboratory Data (last 24 hrs) 06/11/24 06/11/24 06/11/24 02:34 01:05 01:05 WBC 6.60 Hgb 14.4 Hct 41.1 Plt Count 199 PT 12.5 INR 1.19 Sodium Potassium BUN Creatinine Glucose Magnesium Total Bilirubin AST ALT Alkaline Phosphatase Triglycerides Cancelled Cholesterol Cancelled HDL Cholesterol Cancelled Cholesterol/HDL Ratio Cancelled Lipase 06/11/24 01:05 WBC Hgb Hct Plt Count PT INR Sodium 138 Potassium 4.0 BUN 18 Creatinine 1.44 H Glucose 94 Magnesium 2.4 Total Bilirubin 0.3 AST 16 ALT 15 L Alkaline Phosphatase 46 Triglycerides 105 Cholesterol 172 HDL Cholesterol 48 Cholesterol/HDL Ratio 3.58 Lipase 34 Assessment and Plan - Problems (Diagnosis) (1) Chest pain Current Visit: Yes Status: Acute (2) Hyperlipidemia Current Visit: Yes Status: Acute (3) CKD stage 3a, GFR 45-59 ml/min Current Visit: Yes Status: Acute - Plan Assessment Patient is a 73 year old male with HTN AND HLD. He is beign admitted after he presented with chest pain. His first troponin is negative. EKG w/o ischemic changes Chest pain CKD stage III HTN HLD Anxiety and depression PLAN: Will admit under observation with telemetry Continue scheduled ASA and high intensity statin Check lipid panel and TTE Follow CTA chest that was ordered Cardiology consult Resume rest of home medication upon reconciliation - Advance Directives Does patient have a Living Will: No Does patient have a Durable POA for Healthcare: No
--- NOTE | 2024-06-11 04:00 | RAD REPORT ---
EXAM DESCRIPTION: CT CHEST ANGIOGRAPHY WITH IV CONTRAST 06/11/2024 3:36 AM [employer] CLINICAL HISTORY: 73 years, Male, Chest pain. COMPARISON: XR Chest 06/11/[address] Chest 09/22/2022. TECHNIQUE: Multiple transaxial tomograms of the chest were obtained from the lung apices through the lung bases after the administration of large bolus of IV contrast for complete opacification of the pulmonary arteries. Subsequent to 2-D and 3-D multiplanar reformats and maximum intensity projection images were generate d in the sagittal and coronal planes. An individualized dose optimization technique, Automated Exposure Control, was utilized for the perfo rmed procedure. Contrast: Intravenous contrast was administered. FINDINGS: Images are compromised by breathing motion artifact limiting diagnostic value. CTA: Diagnostic quality: Adequate for assessment of the subsegmental pulmonary arteries. The pulmonary arteries are adequately opacified. No evidence of pulmonary emboli or right heart strain. No acute finding in the thoracic aorta. CHEST: Neck base: Visualized thyroid gland and soft tissues are normal. No adenopathy. Lungs: The lung parenchyma demonstrate probable minimal compressive atelectatic changes lung bases an d/or related to breathing motion artifact. No significant pulmonary nodules, masses and/or consolidations. Airways: The trachea mainstem bronchus demonstrate to be within normal limits. Pleura: No evidence for significant pleural effusions. The diaphragms are well positioned. There is n o evidence for pneumothorax. Mediastinum and tamara: There is no significant mediastinal and/or hilar lymphadenopathy. The axillary regions demonstrate to be clear. Heart: Normal size. No pericardial thickening or effusion. Vessels: Coronary: No significant coronary artery calcifications. Aorta: The thoracic aorta demonstrate to be within normal limits. No evidence for aneurysm. 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 Other: There is no significant filling defects within the pulmonary arteries to suggest pulmonary embolus. Osseous structures: The thoracic spine demonstrate to be within normal limits. No evidence for compre ssion deformities and/or significant skeletal lesions. Musculoskeletal: No soft tissue and/or musculoskeletal abnormality. Visualized upper abdomen: The visualized portions of the upper abdomen demonstrate to be unremarkable . IMPRESSION: Compromised study due to breathing motion artifact limiting diagnostic value. No evidence of significant filling defects within the pulmonary arteries to suggest pulmonary embolus . Probable minimal compressive atelectatic changes lung bases and/or related to breathing motion artifa ct. Incidentally noted presence of abnormal signal origin of the right subclavian artery originating post erior aortic arch and traveling underneath the esophagus and trachea, anatomical variants. Electronically signed by: Zachery Can MD 06/11/2024 03:52 AM [facility] Due to temporary technical issues with the PACS/[employer] reporting system, reports are being sean d by the in-house radiologist without review as a courtesy to ensure prompt reporting the interpreting radiologist is fully responsible for the content of the report. Transcribed Date/Time: 06/11/2024 4:00 AM
[2024-06-11 04:05] VITALS: BMI 20.5
[2024-06-11] MEDS ORDERED: ACETAMINOPHEN 325 MG TABLET PO PRN (04:10)
[2024-06-11 05:38] LABS: Specific Gravity 1.024 (1.005-1.030); Sqamous Epithelial None Seen /HPF (None Seen); Urine Bacteria None Seen /HPF (<20); Urine Bilirubin NEGATIVE (Negative); Urine Blood Negative (Negative); Urine Clarity Clear (Clear); Urine Color Colorless (Yellow); Urine Culture Reflex Order NOT NEEDED; Urine Glucose NEGATIVE (Negative); Urine Ketones NEGATIVE (Negative); Urine Microscopic Reflex YN ORDER UMIC; Urine Nitrite NEGATIVE (Negative); Urine Protein NEGATIVE (Negative); Urine RBC <5 /HPF (None Seen); Urine Urobilinogen Normal (Normal); Urine WBC <5 /HPF (<5); Urine pH 6.5 (5.0-7.0)
[2024-06-11] MEDS: DIVALPROEX ER 250 MG TAB PO SCH (09:00)
[2024-06-11] MEDS ORDERED: ASPIRIN EC 81 MG TAB PO SCH (09:00)
[2024-06-11] MEDS: METOPROLOL XL 25 MG TAB PO SCH (09:00)
[2024-06-11] MEDS: ASPIRIN 81 MG CHEWABLE TABLET PO SCH (09:00)
--- NOTE | 2024-06-11 12:59 | P.CNS ---
Date of Consult: 06/11/24 Chief Complaint: chest pain History of Present Illness: patient presented with chest pain, left sided, radiate to left arm but also report abdominal pain, denies any other cardiac symptoms. Allergies No Known Drug Allergies Allergy (Verified 09/16/22 05:48) Home medications list reviewed: Yes Home Medications: Potassium Chloride 10 meq PO DAILY 09/16/22 Acetaminophen [Tylenol] 650 mg PO BEDTIME 06/11/24 Acetaminophen [Tylenol] 650 mg PO Q6HP PRN 06/11/24 Aspirin 81 mg PO DAILY 06/11/24 Atorvastatin Calcium [Lipitor] 80 mg PO BEDTIME 06/11/24 Divalproex ER [Depakote *ER] 1,000 mg PO BID 06/11/24 Metoprolol Succinate [Toprol Xl*] 25 mg PO DAILY 06/11/24 Nitroglycerin 0.4 mg PO PRN 06/11/24 Paroxetine HCl [Paxil] 60 mg PO BEDTIME 06/11/24 - Past Medical/Surgical History Diabetic: No -: HTN -: anxiety -: angina pectoris -: muscle wasting - Social History Smoking Status: Unknown if ever smoked Caffeine use: No Place of Residence: Longterm Review of Systems 10-point ROS is otherwise unremarkable Physical Examination Temp Pulse Resp BP Pulse Ox 97.8 F 76 18 145/75 H 98 06/11/24 12:00 06/11/24 12:00 06/11/24 12:00 06/11/24 12:00 06/11/24 12:00 General: Alert, In no apparent distress HEENT: Atraumatic, PERRLA, Mucous membr. moist/pink, EOMI, Sclerae nonicteric Neck: Supple, 2+ carotid pulse no bruit, No LAD, Without JVD or thyroid abnormality Respiratory: Clear to auscultation bilaterally, Normal air movement Cardiovascular: Regular rate/rhythm, Normal S1 S2 Gastrointestinal: Normal bowel sounds, No tenderness Musculoskeletal: No tenderness Integumentary: No rashes Neurological: Normal gait, Normal speech, Normal tone, Normal affect Lymphatics: No axilla or inguinal lymphadenopathy Laboratory Data (last 24 hrs) 06/11/24 06/11/24 06/11/24 01:05 01:05 01:05 WBC 6.60 Hgb 14.4 Hct 41.1 Plt Count 199 PT 12.5 INR 1.19 Sodium 138 Potassium 4.0 BUN 18 Creatinine 1.44 H Glucose 94 Magnesium 2.4 Total Bilirubin 0.3 AST 16 ALT 15 L Alkaline Phosphatase 46 Triglycerides 105 Cholesterol 172 HDL Cholesterol 48 Cholesterol/HDL Ratio 3.58 Lipase 34 - Problems (1) Chest pain Current Visit: Yes Status: Acute Plan: recommend getting a nuclear stress test in am (Lexiscan) continue ASA 81 mg daily get Echo in am
[2024-06-11] MEDS: PARoxetine HCL 10 MG TAB PO SCH (20:43)
[2024-06-11] MEDS: ACETAMINOPHEN 325 MG TABLET PO SCH (20:43)
[2024-06-11] MEDS: ATORVASTATIN 80 MG TAB PO SCH (20:45)
[2024-06-12 06:39] LABS: Absolute Eosinophils 0.1 K/uL (0-0.5); Absolute Lymphocytes (CBC) 1.8 K/uL (0.7-4.9); Absolute Monocytes 0.8 K/uL (0.1-1.3); Absolute Neutrophil 2.9 K/uL (1.8-8.0); Basophils % 0.2 % (0-1.3); Eosinophils % 2.2 % (0-4.4); Hematocrit 41.8 % (39.6-49.0); Hemoglobin 14.1 g/dL (13.6-17.9); Lymphocytes % 31.1 % (15.3-44.8); MCH 32.7 pg (27.0-35.0); MCHC 33.8 g/dL (32.0-36.0); MCV 96.7 fL (80-100); MPV 8.1 fL (7.6-11.3); Monocytes % 14.9 % (3.3-12.3); Neutrophils % 51.6 % (41.7-73.7); Platelets 189 thou/uL (152-406); RBC Red Blood Cell Count 4.32 M/uL (4.33-5.43); Red Cell Distribution Width 14.9 % (12.1-15.2)
[2024-06-12 06:55] LABS: Anion Gap 7.5 mEq/L (5.0-15.0); Potassium 3.5 mEq/L (3.5-5.1)
[2024-06-12] MEDS: LIDOCAINE 5% OINT 30 GM TUBE TOP SCH (09:00)
[2024-06-12] MEDS ORDERED: REGADENOSON 0.4 MG/5 ML SYR IV ONE (09:31)
--- NOTE | 2024-06-12 10:44 | RAD REPORT ---
EXAM: Nuclear medicine cardiac perfusion examination with ejection fraction HISTORY: Chest pain Chest Pain TECHNIQUE: Rest images: 10.2 mCi technetium 99m sestamibi Stress images: 30.8 mCi of technetium 99m sestamibi COMPARISON: None. FINDINGS: Tomographic images: Small area of stress-induced ischemia suspected involving the anteroapical wall. No finding to suspect hibernating myocardium. Ejection fraction of 69%. EDV: 54 mL ESV: 17 mL LHR: 0.36 TID: 0.94 IMPRESSION: Small area of stress-induced ischemia suspected involving the anteroapical wall. Advise correlation w ith EKG findings.
--- NOTE | 2024-06-12 12:43 | ECHO ---
HEIGHT: 6 ft 0 in WEIGHT: 151 lb 0 oz DATE OF STUDY: 06/12/[address]: Prince Indira Swanson MD 2-DIMENSIONAL: YES M.MODE: YES DOPPLER: YES COLOR FLOW: YES TDS: PORTABLE: YES DEFINITY: BUBBLE STUDY: DIAGNOSIS: CHEST PAIN CARDIAC HISTORY: CATHERIZATION: SURGERY: PROSTHETIC VALVE: PACEMAKER: MEASUREMENTS (cm) DIASTOLIC (NORMALS) SYSTOLIC (NORMALS) IVSd 0.9 (0.6-1.2) LA Diam 3.1 (1.9-4.0) LVEF 60-65% LVIDd 3.9 (3.5-5.7) LVIDs 2.4 (2.0-3.5) %FS 38% LVPWd 0.9 (0.6-1.2) Ao Diam 2.8 (2.0-3.7) 2 DIMENSIONAL ASSESSMENT: RIGHT ATRIUM: NORMAL LEFT ATRIUM: NORMAL RIGHT VENTRICLE: NORMAL LEFT VENTRICLE: NORMAL TRICUSPID VALVE: NORMAL MITRAL VALVE: NORMAL PULMONIC VALVE: NORMAL AORTIC VALVE: NORMAL PERICARDIAL EFFUSION: NONE AORTIC ROOT: NORMAL LEFT VENTRICULAR WALL MOTION: NORMAL DOPPLER/COLOR FLOW: NORMAL COMMENTS: 1. NORMAL LEFT VENTRICULAR SYSTOLIC FUNCTION, EJECTION FRACTION 60-65%, NORMAL WALL MOTION 2. NORMAL DIASTOLIC FUNCTION TECHNOLOGIST: JORDIN ALLRED
--- NOTE | 2024-06-12 12:53 | TREADPHA ---
DX: CHEST PAIN Date of Study: 06/12/2024 Ht: 6' 0 " Wt: 151 lb 0 oz Consulting Physician: EJ MEDICATIONS: TYLENOL, ASPIRIN, LIPITOR, DEPAKOTE, TOPROL XL, NITROSTAT, PAXIL HISTORY: 73 YEAR OLD MALE WITH COMPLAINTS OF CHEST PAIN. HISTORY OF HYPERTENSION, ALTERED MENTAL STATUS, CHILDHOOD ILLNESS PHYSICIAL EXAMINATION: RESTING B.P.: 147/97 RESTING H.R.: 84 RESTING EKG: SINUS RHYTHM PROTOCOL: PHARMACOLOGIC EXERCISE TIME: 3:30 B.P. AT PEAK STRESS: 132/83 IMPRESSION: LEXISCAN INJECTED. CARDIOLITE INJECTED - SEE NUCLEAR MEDICINE REPORT. NO CHEST PAIN OR SHORTNESS OF BREATH. NO VENTRICULAR TACHYCARDIA/ SUPRAVENTRICULAR TACHYCARDIA. NO ARRHYTHMIA. COFFEE PROVIDED.
--- NOTE | 2024-06-12 13:16 | P.PN ---
Subjective Date of Service: 06/12/24 Chief Complaint: chest pain Subjective: No new changes, No C/O voiced, Tolerating diet, Ambulating, Improving Review of Systems 10-point ROS is otherwise unremarkable Physical Examination - Vital Signs Temperature: 97.8 F Blood Pressure: 131/82 Pulse: 75 Respirations: 18 Pulse Ox (%): 96 - Physical Exam General: Alert, In no apparent distress HEENT: Atraumatic, PERRLA, EOMI Neck: Supple, JVD not distended Respiratory: Clear to auscultation bilaterally, Normal air movement Cardiovascular: Regular rate/rhythm, Normal S1 S2 Gastrointestinal: Normal bowel sounds, No tenderness Musculoskeletal: No tenderness Integumentary: No rashes Neurological: Normal speech, Normal tone, Normal affect Lymphatics: No axilla or inguinal lymphadenopathy - Studies Laboratory Data (last 24 hrs) 06/12/24 06/12/24 05:43 05:43 WBC 5.70 Hgb 14.1 Hct 41.8 Plt Count 189 Sodium 138 Potassium 3.5 BUN 18 Creatinine 1.23 Glucose 80 Medications List Reviewed: Yes Assessment And Plan - Current Problems (Diagnosis) (1) Chest pain Current Visit: Yes Status: Acute Plan: Patient stress test is abnormal, NPO after midnight for coronary angiogram in am Echo shows normal LV function continue ASA 81 mg daily continue Toprol XL.
--- NOTE | 2024-06-12 22:10 | PN ---
Date of Progress Note: 06/12/2024 Subjective: The patient was seen this morning for followup. He was lying in bed, sleeping, easily a rousable, not in distress. I have reviewed his hospital record. He came into emergency room with co mplaints of chest pain and after he was evaluated, he was admitted to the hospital. His KS has been ruled out by getting serial cardiac enzymes. Objective: Vital Signs: Reviewed. HEENT: Unremarkable. Lungs: Clear to auscultation. Heart: Sounds normal. Abdomen: Soft. Bowel sounds normal. No guarding, rigidity, tenderness, distention. Extremities: No leg edema. Laboratory Data: Yesterday, WBC 6.6, hemoglobin 14.4, platelets 199. Sodium 138, potassium 4, chlor claudia 103, bicarb 30, BUN 18, creatinine 1.44, glucose 94. First troponin 5.3, second troponin 10.8. Today, the patient had a Lexiscan stress test, which came back abnormal and showed reversible perfusi on defect. Impression: 1. Chest pain. 2. Rule out coronary artery disease. 3. Hypertension. 4. Hyperlipidemia. 5. Chronic kidney disease stage IIIA. Plan: When I saw the patient, his sister and [id number] were present in room. Details were disc ussed with all of them and since the patient's stress test came back abnormal, plan is to go ahead an d do cardiac cath tomorrow. Details were discussed with certified travel counselor who is planning to do catheteri zation tomorrow, so we will keep the patient n.p.o. after midnight. With this in mind, the patient i s appropriate for inpatient. Continue current medical management and I will see him tomorrow for speedy marks. ASHLEIGH/MODL Voice ID: [id number] Report ID: [id number]
[2024-06-13] MEDS: NA CHLORIDE 0.9% 500 ML ONE (07:48)
[2024-06-13] MEDS ORDERED: ATROPINE SULF 1 MG/10 ML SYR IV ONE (08:28)
[2024-06-13] MEDS ORDERED: CLOPIDOGREL 75 MG TABLET ONE (08:28)
[2024-06-13] MEDS ORDERED: HEPARIN 10,000 UNIT/10 ML VIAL IV ONE (08:28)
[2024-06-13] MEDS ORDERED: LIDOCAINE 1% 20 ML MDV ONE (08:28)
[2024-06-13] MEDS ORDERED: MIDAZOLAM HCL 2 MG/2 ML INJ ONE (08:28)
[2024-06-13] MEDS ORDERED: HEPA 1000U/500MLS 2,000 UNIT/1,000 ML BAG IV ONE (08:28)
[2024-06-13] MEDS ORDERED: HEPARIN 5000 UNIT/ML 1 ML VIAL ONE (08:29)
[2024-06-13] MEDS ORDERED: FENTANYL CITR 100 MCG/2 ML ONE (08:29)
[2024-06-13] MEDS ORDERED: NALOXONE 0.4 MG/ML VIAL ONE (08:29)
[2024-06-13] MEDS ORDERED: FLUMAZENIL 0.1 MG/ML (5 mL VIAL) IV ONE (08:29)
[2024-06-13] MEDS ORDERED: TICAGRELOR 90 MG TABLET PO ONE (08:29)
[2024-06-13] MEDS ORDERED: ASPIRIN 325 MG TAB ONE (08:29)
[2024-06-13 11:05] VITALS: O2SAT 98
--- NOTE | 2024-06-13 12:08 | P.PN ---
Subjective Date of Service: 06/13/24 Chief Complaint: chest pain Subjective: No new changes, No C/O voiced, Tolerating diet, Ambulating, Improving Review of Systems 10-point ROS is otherwise unremarkable Physical Examination - Vital Signs Temperature: 97.7 F Blood Pressure: 110/77 Pulse: 78 Respirations: 18 Pulse Ox (%): 98 - Physical Exam General: Alert, In no apparent distress HEENT: Atraumatic, PERRLA, EOMI Neck: Supple, JVD not distended Respiratory: Clear to auscultation bilaterally, Normal air movement Cardiovascular: Regular rate/rhythm, Normal S1 S2 Gastrointestinal: Normal bowel sounds, No tenderness Musculoskeletal: No tenderness Integumentary: No rashes Neurological: Normal speech, Normal tone, Normal affect Lymphatics: No axilla or inguinal lymphadenopathy - Studies Medications List Reviewed: Yes Assessment And Plan - Current Problems (Diagnosis) (1) Chest pain Current Visit: Yes Status: Acute Plan: Patient stress test is abnormal, so Coronary angiogram was done and it did not shows any significant CAD except for moderate mid LAD intramyocardial brdige. Echo shows normal LV function continue ASA 81 mg daily continue Toprol XL. Cardiology will sign off, please call with any questions
--- NOTE | 2024-06-13 14:45 | OP ---
Date of Procedure: 06/13/2024 Surgeon: Neftaly Masterson Procedure Performed: Selective coronary angiogram. Indication For Procedure: Abnormal stress test. Complications: None. Estimated Blood Loss: Less than 50 cc. Access: Right radial, closed by TR band. Sedation Time: 20 minutes with 1 of Versed and 25 of fentanyl. Description Of Procedure: After risks, and benefits, and alternatives were explained to the patient, patient agreed to proceed with procedure and signed informed consent. The patient was brought back to the animal laboratory technician, prepped and draped in sterile fashion. Time-out was performed. Sedation was admini stered. Next, right radial access was obtained using ultrasound-guided micropuncture technique. Tig er 4.0 catheter was advanced over a J-wire to the aortic root. Selective angiogram was done using th is catheter. At the end of procedure, catheter was removed over a J-wire. Sheath was removed. TR b and was applied and hemostasis was achieved. The patient was moved back to Recovery in stable condit ion. Findings: 1. Left main normal. 2. LAD; proximal mild luminal irregularities with mid diffuse 30% disease, but that is inside myocard ial bridge segment and this bridge is moderate in nature. Distal, mild luminal regularities. 3. Left circ; mild luminal irregularities. 4. RCA; mild luminal irregularities. Assessment And Plan: Mild to moderate mid LAD disease with moderate intramyocardial bridge segment. The plan is to continue medical management for CAD. Avoid nitrates and calcium channel sandy. SWIFT/MODL Voice ID: [id number] Report ID: [id number]
[2024-06-13 16:49] VITALS: BP 96/72; TEMP 97.6
--- NOTE | 2024-06-19 12:39 | EKG ---
Test Date: 2024-06-11 Test Time: 01:14:05 Child Development Professor: MEASUREMENT RESULTS: Intervals: Rate: 73 AL: 142 QRSD: 80 QT: 388 QTc: 427 [place]: P: 69 AL: 142 QRS: 52 T: 57 INTERPRETIVE STATEMENTS: Normal sinus rhythm Normal ECG Compared to ECG 03/26/2024 21:40:18 Sinus tachycardia no longer present ST (T wave) deviation no longer present Electronically Signed On 06-19-24 12:21:40 SOLDERING MACHINE TENDER by Neftaly Masterson
--- NOTE | 2024-06-19 12:39 | EKG ---
Test Date: 2024-06-11 Test Time: 01:14:33 Tank Car Inspector: MEASUREMENT RESULTS: Intervals: Rate: 73 VA: 136 QRSD: 84 QT: 394 QTc: 434 [place]: P: 61 VA: 136 QRS: 52 T: 67 INTERPRETIVE STATEMENTS: Normal sinus rhythm ST abnormality, possible digitalis effect Abnormal ECG Compared to ECG 06/11/2024 01:14:05 ST (T wave) deviation now present Electronically Signed On 06-19-24 12:21:37 W[employer]ER MOLDED CANDLES by Neftaly Masterson
== END 2024-06-13 18:28 | DRG 287 ==
LOC: ER 00:35 → ERHOLD 02:34 → 4TH 14:59 → OBSVTOIN 06-12 12:36
PROVIDERS: ADMIT Internal Medicine; ATTEND Internal Medicine
PROC: 4A023N7 Measurement of Cardiac Sampling and Pressure, Left Heart, Percutaneous Approach (ICD-10-PCS; principal; 2024-06-13)
PROC: B2111ZZ Fluoroscopy of Multiple Coronary Arteries using Low Osmolar Contrast (ICD-10-PCS; 2024-06-13)
DX: R07.9 Chest pain, unspecified (principal); I12.9 Hypertensive chronic kidney disease with stage 1 through stage 4 chronic kidney disease, or unspecified chronic kidney disease; N18.31 Chronic kidney disease, stage 3a; F41.9 Anxiety disorder, unspecified; F32.A Depression, unspecified; E78.00 Pure hypercholesterolemia, unspecified; I25.10 Atherosclerotic heart disease of native coronary artery without angina pectoris; Z79.82 Long term (current) use of aspirin; Z79.899 Other long term (current) drug therapy
CPT/HCPCS: 36415; 71045; 71275; 76937; 78452; 80048; 80061; 80076; 80164; 81001; 83036; 83690; 83735; 83880; 84484; 85025; 85610; 93005; 93017; 93306; 93454; 96365; 96366; 96372; 96375; 99152; 99153; 99285; A9500; C1893; G0378; J0461; J1644; J2003; J2250; J2310; J2785; J3010; J7030; J7040; Q9966; Q9967

== ENCOUNTER 2025-01-10 13:24 | Emergency (ER) | payer OTHER, MEDICAID ==
--- OUTSIDE RECORDS SUMMARY | 2025-01-10 13:26 | XMS REPORT | Continuity of Care Document ---
Author Name Unknown Address [address] [facility] [place] [address] Organization [facility] Address [address] [facility] [address] [place] [address] Care Team Providers Care Marketing Intern Name Role Phone Alex Shea Attending Clinician Unavailable Alex Shea Admitting Clinician Unavailable Social History Social Habit Start Date Stop Date Quantity Comments Source History of Tobacco Use [facility] Sex Assigned At [facility] Smoking Status Start Date Stop Date Source Never Smoker [facility] Medications Ordered Medication Name Filled Medication Name Start Date Stop Date Current Medication? Ordering Clinician Indication Dosage Frequency Signature (SIG) Comments Components Source Paxil 20 MG Paxil 20 MG No 1{table t_in_th e_morni ng} QD Paxil 20 MG Tylenol 325 MG Tylenol 325 MG No 1{table t_as_ne eded} 6xD Tylenol 325 MG Metoprolol & Diet Manage Prod Metoprolol & Diet Manage Prod No Metoprolol & Diet Manage Prod Atorvastati n Calcium 80 MG Atorvastati n Calcium 80 MG No 1{table t} QD Atorvastat in Calcium 80 MG Encounters Start Date/Time End Date/Time Encounter Type Admission Type Attending Clinicians Care Facility Care Department Encounter ID Source 2024-07-13 05:34:00 Outpatient Alex Shea [facility] [id number] [facility] 2024-01-04 13:57:00 Outpatient Alex Shea [facility] [id number] [facility] 2023-10-05 13:47:01 Outpatient Alex Shea [facility] [id number] [facility] 2024-07-06 00:00:00 2024-07-06 00:00:00 (F/U) Follow Up Visit [facility] [id number] [facility] 2024-04-06 00:00:00 2024-04-06 00:00:00 (F/U) Follow Up Visit [facility] [id number] [facility] 2024-01-04 00:00:00 2024-01-04 00:00:00 (F/U) Follow Up Visit [facility] [id number] [facility]
--- NOTE | 2025-01-10 14:46 | RAD REPORT ---
EXAMINATION: Head Brain Wo Cont CLINICAL INDICATION: Male, 74 years old.fall head injury TECHNIQUE: Axial CT images from the skull base to the vertex without intravenous contrast. Coronal an d sagittal reformatted images were created from the data set. One or more of the following dose reduction techniques were used: Automated exposure control, adjustment of the mA and/or kV according to patient size, and/or iterative reconstruction. Unless otherwise specified, incidental findings do not require dedicated imaging follow-up. [id number]. COMPARISON: 10/28/2024 FINDINGS: INTRACRANIAL: No acute intracranial hemorrhage. No acute large vascular territory infarct. No hydroce phalus. No mass effect or midline shift. Mild chronic small vessel ischemic changes.Moderate cerebral atrophy. VASCULATURE: No visualized abnormalities in the arteries or dural venous sinuses. SCALP/SKULL: No calvarial fracture identified. No acute soft tissue abnormality. SINUSES: The visualized paranasal sinuses are mostly clear. No significant mastoid fluid. IMPRESSION: No acute intracranial abnormality.
--- NOTE | 2025-01-10 14:54 | EDPHYS ---
Physician Documentation [facility] Name: Gian Lombardi Age: 74 yrs Sex: Male : 1950 Arrival Date: 01/10/2025 Time: 13:24 Bed 4 Private MD: ED Physician Melania Bill HPI: 01/10 14:49 This 74 yrs old Male presents to ER via EMS with complaints of fall, head injury. sp3 14:49 74-year-old male with history of chronic pain, hyperlipidemia, intellectual disability, sp3 hypertension presents via EMS from the alf with a mechanical fall witnessed with mild injury to the posterior head. Denies loss of consciousness and bystanders reported him being dazed. Patient has no other complaints including neck pain, chest pain, back pain, abdominal pain, extremity pain, or any other signs or symptoms on ROS at this time. ROS, history and physical limited secondary to intellectual disability however patient cannot communicate.. Historical: - Allergies: 13:43 No Known Drug Allergies; bp - PMHx: 13:43 angina pectoris; Chronic pain; Hypercholesterolemia; Hypertensive disorder; bp Intellectual disability; kidney disease; muscle atrophy (December 23); - Immunization history:: Adult Immunizations up to date. - Infectious Disease History:: Denies. - Social history:: Smoking status: unknown. ROS: 14:52 Constitutional: Negative for fever, chills, and weight loss, Eyes: Negative for injury, sp3 pain, redness, and discharge, ENT: Negative for injury, pain, and discharge, Neck: Negative for injury, pain, and swelling, Cardiovascular: Negative for chest pain, palpitations, and edema, Respiratory: Negative for shortness of breath, cough, wheezing, and pleuritic chest pain, Abdomen/GI: Negative for abdominal pain, nausea, vomiting, diarrhea, and constipation, MS/Extremity: Negative for injury and deformity, Skin: Negative for injury, rash, and discoloration, Allergy/Immunology: Negative for hives, rash, and allergies, Endocrine: Negative for neck swelling, polydipsia, polyuria, polyphagia, and marked weight changes, 14:52 All other systems are negative, 14:52 Unable to obtain ROS due to Limited ROS due to intellectual disability., Exam: 14:52 Constitutional: This is a well developed, well nourished patient who is awake, alert, sp3 and in no acute distress. Head/Face: Normocephalic, atraumatic. Eyes: Pupils equal round and reactive to light, extra-ocular motions intact. Lids and lashes normal. Conjunctiva and sclera are non-icteric and not injected. Cornea within normal limits. Periorbital areas with no swelling, redness, or edema. ENT: Nares patent. No nasal discharge, no septal abnormalities noted. External auditory canals are clear. Oropharynx with no redness, swelling, or masses, exudates, or evidence of obstruction, uvula midline. Mucous membranes moist. Neck: Trachea midline, no thyromegaly or masses palpated, and no cervical lymphadenopathy. Supple, full range of motion without nuchal rigidity, or vertebral point tenderness. No Meningismus. Chest/axilla: Normal chest wall appearance and motion. Nontender with no deformity. No lesions are appreciated. Cardiovascular: Regular rate and rhythm with a normal S1 and S2. No gallops, murmurs, or rubs. Normal PMI, no JVD. No pulse deficits. Respiratory: Lungs have equal breath sounds bilaterally, clear to auscultation and percussion. No rales, rhonchi or wheezes noted. No increased work of breathing, no retractions or nasal flaring. Skin: Warm, dry with normal turgor. Normal color with no rashes, no lesions, and no evidence of cellulitis. MS/ Extremity: Pulses equal, no cyanosis. Neurovascular intact. Full, normal range of motion. Vital Signs: 13:42 BP 163 / 102; Pulse 84; Resp 18; Temp 97.2; Pulse Ox 98% ; bp MDM: 13:37 Medical Screening Exam initiated sp3 14:53 Data reviewed: vital signs, nurses notes, old medical records, radiologic studies. ED sp3 course: 74-year-old male with mechanical fall and mild head injury. Differential diagnosis includes closed head injury versus concussion versus intracranial hemorrhage. CT scan of the head is negative. Will safely discharge him home at this time with diagnosis closed head injury. No other intervention indicated at this time.. 01/10 14:11 Order name: CT Head Brain wo Cont; Complete Time: 14:48 sp3 Administered Medications: No medications were administered Disposition Summary: 01/10/25 14:53 Discharge Ordered Notes: Location: Home sp3 Condition: Stable sp3 Diagnosis - Closed head injury, concussion sp3 Followup: sp3 - With: Private Physician - When: Upon discharge from the Emergency Department - Reason: Continuance of care Discharge Instructions: - Discharge Summary Sheet sp3 - Head Injury, Adult sp3 Forms: - Medication Reconciliation Form sp3 - Antibiotic Education sp3 - Prescription Opioid Use sp3 - Patient Portal Instructions sp3 - Leadership Thank You Letter sp3 Signatures: Dispatcher [employer] Haseeb Casiano RN RN bp Patel, Setul, MD MD sp3
--- NOTE | 2025-01-10 14:54 | ER ---
Nurse's Notes [facility] Name: Gian Lombardi Age: 74 yrs Sex: Male : 1950 Arrival Date: 01/10/2025 Time: 13:24 Bed 4 Private MD: Diagnosis: Closed head injury, concussion Presentation: 01/10 13:42 Chief complaint: EMS states: FALL AT [facility]. Coronavirus screen: At bp this time, the client does not indicate any symptoms associated with coronavirus-19. Ebola Screen: No symptoms or risks identified at this time. Initial Sepsis Screen: Does the patient meet any 2 criteria? No. Patient's initial sepsis screen is negative. Does the patient have a suspected source of infection? No. Patient's initial sepsis screen is negative. Risk Assessment: Do you want to hurt yourself or someone else? Patient reports no desire to harm self or others. Onset of symptoms is unknown. Care prior to arrival: Glucose check: 121. 13:42 Method Of Arrival: EMS: [facility] bp 13:42 Acuity: AVIS 3 bp Triage Assessment: 13:43 General: Appears in no apparent distress. Behavior is calm, cooperative. Pain: bp Complains of pain in left hip. EENT: No deficits noted. Neuro: No deficits noted. Cardiovascular: No deficits noted. Respiratory: No deficits noted. GI: No signs and/or symptoms were reported involving the gastrointestinal system. : No signs and/or symptoms were reported regarding the genitourinary system. Derm: No deficits noted. Musculoskeletal: Reports pain in left hip. Injury Description: Abrasion sustained to face. Historical: - Allergies: 13:43 No Known Drug Allergies; bp - PMHx: 13:43 angina pectoris; Chronic pain; Hypercholesterolemia; Hypertensive disorder; bp Intellectual disability; kidney disease; muscle atrophy (December 23); - Immunization history:: Adult Immunizations up to date. - Infectious Disease History:: Denies. - Social history:: Smoking status: unknown. Vital Signs: 13:42 BP 163 / 102; Pulse 84; Resp 18; Temp 97.2; Pulse Ox 98% ; bp ED Course: 13:26 Patient arrived in ED. iw 13:26 Melania Bill MD is Attending Physician. sp3 13:39 Haseeb Adamson, SUE is Primary Nurse. bp 13:43 Triage completed. bp 13:43 Arm band placed on. bp 14:38 CT Head Brain wo Cont In Process Unspecified. EDMS Administered Medications: No medications were administered Outcome: 14:53 Discharge ordered by . sp3 15:20 Discharged to home via wheelchair, with family, iw 15:20 Condition: good 15:20 Discharge instructions given to family, Instructed on discharge instructions, follow up and referral plans. Demonstrated understanding of instructions, follow-up care, 15:21 Patient left the ED. iw Signatures: Dispatcher [employer] EDSejal Del Angel, RN RN Haseeb Márquez, RN RN Melania Peterson MD MD sp3
[2025-01-10 15:33] VITALS: BP 163/102; TEMP 97.2; O2SAT 98
== END 2025-01-10 15:21 | disposition home or self-care (01) ==
LOC: ER 13:24
DX: S06.0X0A Concussion without loss of consciousness, initial encounter (principal); W18.30XA Fall on same level, unspecified, initial encounter; Y92.129 Unspecified place in nursing home as the place of occurrence of the external cause
CPT/HCPCS: 70450; 99283